=== PATIENT | female | born 1940 | race Caucasian/White ===

== ENCOUNTER 2017-11-27 15:59 | Inpatient (IN) ==
[2017-11-27] MEDS ORDERED: ONDANSETRON 4 MG/2 ML VIAL IV STA (16:22)
[2017-11-27] MEDS ORDERED: ASPIRIN 325 MG TABLET PO STA (16:22)
[2017-11-27] MEDS ORDERED: ORPHENADRINE 60 MG/2 ML VIAL IV STA (16:22)
[2017-11-27] MEDS ORDERED: KETOROLAC 30 MG/1 ML VIAL IV STA (16:22)
[2017-11-27 16:36] LABS: Basophils % 0.5 % (0.0-0.8); Eosinophils # 0.2 10*3/uL (0.0-0.87); Eosinophils % 2.3 % (0.00-10.9); Hematocrit 37.4 VOL% (35.7-47.0); Hemoglobin 11.8 GM/DL (12.0-16.0); Immature Granulocytes % 0.7 %; Immature Granulocytes Absolute 0.06 #; Lymphocytes # 1.5 10*3/uL (1.4-4.0); Lymphocytes % 17.4 % (21.3-54.2); Mean Corpuscular HGB Conc 31.6 GM/DL (32-36); Mean Corpuscular Hemoglobin 29 PG (27-34); Mean Corpuscular Volume 92.1 FL (87-102); Mean Platelet Volume 10.1 FL (9.6-12.0); Monocytes # 0.4 10*3/uL (0.11-0.8); Monocytes % 4.8 % (1.7-12.7); Neutrophils # 6.5 10*3/uL (1.4-7.4); Neutrophils % 74.3 % (38.7-73.9); Platelet Count 195 T/CUMM (130-400); Red Blood Count 4.06 MC/CUMM (3.8-5.5); White Blood Count 8.7 T/CUMM (4-12)
[2017-11-27 16:52] LABS: INR 1.7; PT Patient Result 18.1 SECS; Partial Thromboplastin Time 34.3 SECS (0-40)
[2017-11-27 17:01] LABS: Alanine Aminotransferase 23 U/L (13-56); Albumin 3.3 G/DL (3.4-5.0); Alkaline Phosphatase 112 U/L (45-117); Aspartate Amino Transferase 20 U/L (0-37); Bilirubin,Total < 0.39 MG/DL (0.2-1.0); Blood Urea Nitrogen 26 MG/DL (7-18); Calcium 8.4 MG/DL (8.5-10.1); Glucose 262 MG/DL (74-106); Osmolality,Calculated 288.7 MOS/KG (273-304); Potassium 4.2 MMOL/L (3.5-5.1); Sodium 138 MMOL/L (136-145); Total Protein 7.4 G/DL (6.4-8.3)
[2017-11-27 17:03] LABS: Troponin I 0.235 NG/ML (0.00-0.045)
[2017-11-27] MEDS ORDERED: NITROGLYCERIN 2% OINT 1 INCH/GM PACK TOP STA (17:08)
[2017-11-27] MEDS ORDERED: ZALEPLON 5 MG CAPSULE PO PRN (17:58)
[2017-11-27] MEDS ORDERED: ACETAMINOPHEN 325 MG TABLET PO PRN (17:58)
[2017-11-27] MEDS ORDERED: ONDANSETRON 4 MG/2 ML VIAL IV PRN (17:58)
[2017-11-27] MEDS ORDERED: MAGNESIUM SULF RIDER 2 GM in PREMIX 1 EACH IV PRN (17:58)
[2017-11-27] MEDS ORDERED: MAGNESIUM SULF RIDER 4 GM in PREMIX 1 EACH IV PRN (17:58)
[2017-11-27] MEDS ORDERED: POTASSIUM CHLORIDE 20 MEQ TABLET PO PRN (17:58)
[2017-11-27] MEDS ORDERED: BISACODYL 5 MG TABLET PO PRN (17:58)
[2017-11-27] MEDS ORDERED: diphenhydrAMINE CAP 25 MG CAPSULE PO PRN (17:58)
[2017-11-27] MEDS ORDERED: ENOXAPARIN 80 MG/0.8 ML SYRINGE SUBCUT STA (18:05)
[2017-11-27] MEDS: SODIUM CHLORIDE 0.9% 1,000 ML IV SCH (19:24)
[2017-11-27] MEDS: ISOSORBIDE MONONITRATE 30 MG TABLET PO SCH (19:24)
[2017-11-27 20:46] LABS: CKMB % 2.1 %; Thyroid Stimulating Hormone 1.75 uIU/ml (0.358-3.74)
[2017-11-27 20:50] LABS: Troponin I 2.17 NG/ML (0.00-0.045)
[2017-11-27] MEDS: GABAPENTIN 300 MG CAPSULE PO SCH (21:00)
[2017-11-27] MEDS: GLIMEPIRIDE 4 MG TABLET PO SCH (21:00)
[2017-11-27] MEDS: VENLAFAXINE 100 MG TABLET PO SCH (21:00)
[2017-11-28 00:02] LABS: Apearance,Urine CLEAR (Clear); Bilirubin,Urine Negative (Negative); Blood, Urine Negative (Negative); Glucose,Urine (UA) >=500 mg/dL (Negative); Ketones,Urine Negative (Negative); Mucus,Urine Occasional /LPF (Occasional); Nitrite,Urine Negative (Negative); Protein,Urine 100 MG/DL; RBC,Urine <1 /HPF (0-4); Squamous Epithelial Cell,Urine Occasional /HPF (0-10); Urine Color Yellow (Yellow); Urine Specific Gravity 1.014 (1.001-1.035); Urine Urobilinogen < 2.0 EU/DL (0.2-1.0); WBC,Urine 1 /HPF (0-6)
[2017-11-28 01:55] LABS: Basophils % 0.7 % (0.0-0.8); Eosinophils # 0.3 10*3/uL (0.0-0.87); Eosinophils % 4.9 % (0.00-10.9); Hematocrit 32.4 VOL% (35.7-47.0); Immature Granulocytes % 0.2 %; Immature Granulocytes Absolute 0.01 #; Lymphocytes % 32.2 % (21.3-54.2); Mean Corpuscular HGB Conc 30.9 GM/DL (32-36); Mean Corpuscular Hemoglobin 29 PG (27-34); Mean Corpuscular Volume 92.3 FL (87-102); Monocytes # 0.5 10*3/uL (0.11-0.8); Neutrophils # 3.3 10*3/uL (1.4-7.4); Platelet Count 172 T/CUMM (130-400); Red Blood Count 3.51 MC/CUMM (3.8-5.5); Red Cell Distribution Width 13.1 % (9.3-17.3); White Blood Count 6.1 T/CUMM (4-12)
[2017-11-28 02:07] LABS: INR 1.7; PT Patient Result 17.8 SECS
[2017-11-28 02:18] LABS: CKMB % 2.6 %; Calcium 7.8 MG/DL (8.5-10.1); Osmolality,Calculated 288.3 MOS/KG (273-304); Potassium 3.6 MMOL/L (3.5-5.1); Risk Ratio 6.03; VLDL CHOLESTEROL 100.6 MG/DL
[2017-11-28 02:28] LABS: Troponin I 3.81 NG/ML (0.00-0.045)
[2017-11-28] MEDS: INSULIN NPH/REGULAR 70/30 100 UNIT/ML SUBCUT SCH (07:38)
[2017-11-28] MEDS ORDERED: MAGNESIUM SULF RIDER 2 GM in PREMIX 1 EACH IV PRN (07:58)
[2017-11-28] MEDS ORDERED: POTASSIUM CHLORIDE RIDER 10 MEQ in PREMIX 1 EACH IV PRN (07:58)
[2017-11-28] MEDS: LOSARTAN 50 MG TABLET PO SCH (08:27)
[2017-11-28] MEDS: ASPIRIN EC 81 MG TABLET PO SCH (08:28)
[2017-11-28] MEDS: GLIMEPIRIDE 4 MG TABLET PO SCH ×2 (08:28→20:17)
[2017-11-28] MEDS: PANTOPRAZOLE 40 MG TABLET PO SCH (08:28)
[2017-11-28] MEDS: GABAPENTIN 300 MG CAPSULE PO SCH ×2 (08:28→20:17)
[2017-11-28] MEDS: ISOSORBIDE MONONITRATE 30 MG TABLET PO SCH (08:28)
[2017-11-28] MEDS: VENLAFAXINE 100 MG TABLET PO SCH ×2 (08:30→20:18)
[2017-11-28] MEDS ORDERED: ENOXAPARIN 80 MG/0.8 ML SYRINGE SUBCUT ONE (08:33)
[2017-11-28] MEDS ORDERED: ROSUVASTATIN 20 MG TABLET PO SCH (09:00)
[2017-11-28] MEDS ORDERED: CARVEDILOL 6.25 MG TABLET PO SCH (09:00)
[2017-11-28] MEDS: FUROSEMIDE 20 MG TABLET PO SCH (09:19)
[2017-11-28] MEDS: OMEGA 3 ACID ETHYL ESTERS 1 GM CAPSULE PO SCH ×2 (09:19→20:17)
[2017-11-28] MEDS: EZETIMIBE 10 MG TABLET PO SCH (09:19)
[2017-11-28] MEDS: SODIUM CHLORIDE 0.9% 1,000 ML IV SCH (10:44)
[2017-11-28] MEDS ORDERED: diphenhydrAMINE CAP 25 MG CAPSULE PO ONE (12:00)
[2017-11-28] MEDS ORDERED: DIAZEPAM 5 MG TABLET PO ONE (12:00)
[2017-11-28] MEDS ORDERED: HEPARIN/NACL 0.9% 2 UNITS/ML 1,000 ML IV ONE (12:25)
[2017-11-28] MEDS ORDERED: MIDAZOLAM 2 MG/2 ML VIAL ONE (13:13)
[2017-11-28] MEDS ORDERED: fentaNYL 100 MCG/2 ML VIAL ONE (13:13)
[2017-11-28] MEDS ORDERED: LIDOCAINE 1%/EPI INJ 20 ML VIAL ONE (13:13)
[2017-11-28] MEDS ORDERED: ENOXAPARIN 30 MG/0.3 ML SYRINGE ONE (13:34)
[2017-11-28] MEDS ORDERED: TIROFIBAN 5,000 MCG/100 ML PREMIX IV ONE (13:37)
[2017-11-28] MEDS ORDERED: TICAGRELOR 90 MG TABLET ONE (13:51)
[2017-11-28] MEDS ORDERED: TIROFIBAN 5,000 MCG/100 ML PREMIX IV SCH (14:30)
[2017-11-28] MEDS ORDERED: CARVEDILOL 6.25 MG TABLET PO ONE (16:55)
[2017-11-28] MEDS ORDERED: INSULIN NPH/REGULAR 70/30 100 UNIT/ML SUBCUT SCH (18:00)
[2017-11-28] MEDS: TICAGRELOR 90 MG TABLET PO SCH (20:17)
[2017-11-28] MEDS: CARVEDILOL 25 MG TABLET PO SCH (20:17)
[2017-11-28] MEDS ORDERED: DIGOXIN 0.125 MG TABLET PO SCH (21:00)
[2017-11-29 03:40] LABS: Basophils % 0.5 % (0.0-0.8); Eosinophils # 0.2 10*3/uL (0.0-0.87); Eosinophils % 3.5 % (0.00-10.9); Hematocrit 34.7 VOL% (35.7-47.0); Hemoglobin 10.8 GM/DL (12.0-16.0); Immature Granulocytes % 0.3 %; Immature Granulocytes Absolute 0.02 #; Lymphocytes # 1.2 10*3/uL (1.4-4.0); Lymphocytes % 19.4 % (21.3-54.2); Mean Corpuscular HGB Conc 31.1 GM/DL (32-36); Mean Corpuscular Hemoglobin 29 PG (27-34); Mean Platelet Volume 10.2 FL (9.6-12.0); Monocytes # 0.6 10*3/uL (0.11-0.8); Monocytes % 9.5 % (1.7-12.7); Neutrophils # 4.2 10*3/uL (1.4-7.4); Neutrophils % 66.8 % (38.7-73.9); Platelet Count 194 T/CUMM (130-400); Red Blood Count 3.77 MC/CUMM (3.8-5.5); White Blood Count 6.3 T/CUMM (4-12)
[2017-11-29 03:46] LABS: INR 1.4; PT Patient Result 14.8 SECS
[2017-11-29 04:01] LABS: Calcium 7.7 MG/DL (8.5-10.1); Osmolality,Calculated 287.4 MOS/KG (273-304); Potassium 3.5 MMOL/L (3.5-5.1)
[2017-11-29] MEDS: DILTIAZEM CD 180 MG CAPSULE PO SCH ×2 (06:51→08:26)
[2017-11-29 07:12] VITALS: BP 177/122
[2017-11-29] MEDS ORDERED: DILTIAZEM CD 180 MG CAPSULE PO SCH (09:00)
[2017-11-29] MEDS: CARVEDILOL 25 MG TABLET PO SCH (09:34)
[2017-11-29] MEDS: FUROSEMIDE 20 MG TABLET PO SCH (09:34)
[2017-11-29] MEDS: LOSARTAN 50 MG TABLET PO SCH (09:34)
[2017-11-29] MEDS: INSULIN NPH/REGULAR 70/30 100 UNIT/ML SUBCUT SCH (09:34)
[2017-11-29] MEDS: ISOSORBIDE MONONITRATE 30 MG TABLET PO SCH (09:34)
[2017-11-29] MEDS: GABAPENTIN 300 MG CAPSULE PO SCH (09:34)
[2017-11-29] MEDS: ASPIRIN EC 81 MG TABLET PO SCH (09:35)
[2017-11-29] MEDS: GLIMEPIRIDE 4 MG TABLET PO SCH (09:35)
[2017-11-29] MEDS: PANTOPRAZOLE 40 MG TABLET PO SCH (09:35)
[2017-11-29] MEDS: TICAGRELOR 90 MG TABLET PO SCH (09:35)
[2017-11-29] MEDS: VENLAFAXINE 100 MG TABLET PO SCH (09:35)
[2017-11-29] MEDS: EZETIMIBE 10 MG TABLET PO SCH (09:35)
[2017-11-29] MEDS: OMEGA 3 ACID ETHYL ESTERS 1 GM CAPSULE PO SCH (09:40)
== END 2017-11-29 14:40 | disposition home or self-care (01) | DRG 247 ==
LOC: N.ED 15:59 → N.EDINP 15:59 → N.CC 19:15 → N.TELES 21:30 → N.CC 21:38
PROVIDERS: ADMIT Internal Medicine Interventional Cardiology; ATTEND Internal Medicine Interventional Cardiology
PROC: CLCCHCL (ICD-10-PCS; 2017-11-28 13:45)

== ENCOUNTER 2018-10-30 10:23 | Inpatient (IN) ==
[2018-10-30] MEDS ORDERED: DILTIAZEM 50 MG/10 ML VIAL IV STA ×2 (10:45→11:15)
[2018-10-30] MEDS ORDERED: dilTIAZem Drip 125 MG/125 ML PREMIX IV ONE (10:47)
[2018-10-30] MEDS ORDERED: DILTIAZEM 25 MG/5 ML VIAL IV ONE (10:48)
[2018-10-30] MEDS ORDERED: dilTIAZem Drip 125 MG/125 ML PREMIX IV SCH (11:00)
[2018-10-30 11:06] LABS: Basophils % 0.5 % (0.0-0.8); Eosinophils # 0.1 10*3/uL (0.0-0.87); Eosinophils % 1.7 % (0.00-10.9); Hematocrit 37.1 VOL% (35.7-47.0); Hemoglobin 11.6 GM/DL (12.0-16.0); Immature Granulocytes % 0.3 %; Immature Granulocytes Absolute 0.02 #; Lymphocytes # 0.9 10*3/uL (1.4-4.0); Lymphocytes % 12.3 % (21.3-54.2); Mean Corpuscular HGB Conc 31.3 GM/DL (32-36); Mean Corpuscular Volume 92.5 FL (87-102); Monocytes % 5.2 % (1.7-12.7); Platelet Count 223 T/CUMM (130-400); Red Blood Count 4.01 MC/CUMM (3.8-5.5); Red Cell Distribution Width 13.4 % (9.3-17.3); White Blood Count 7.5 T/CUMM (4-12)
[2018-10-30 11:14] LABS: Partial Thromboplastin Time 34.5 SECS (20.8-36.0)
[2018-10-30 11:19] LABS: INR 2.1
[2018-10-30 11:20] LABS: PT Patient Result 22.3 SECS (9.6-12.2)
[2018-10-30 11:33] LABS: Alanine Aminotransferase 21 U/L (13-56); Albumin 3.4 G/DL (3.4-5.0); Alkaline Phosphatase 100 U/L (45-117); Aspartate Amino Transferase 18 U/L (0-37); Bilirubin,Total < 0.39 MG/DL (0.2-1.0); Blood Urea Nitrogen 30 MG/DL (7-18); Calcium 8.7 MG/DL (8.5-10.1); Estimated Glom Filtration Rate 36 ML/MIN; Glucose 249 MG/DL (74-106); Osmolality,Calculated 290.5 MOS/KG (273-304); Total Protein 7.2 G/DL (6.4-8.3)
[2018-10-30] MEDS ORDERED: FUROSEMIDE 40 MG/4 ML VIAL IV STA ×2 (11:43→11:44)
[2018-10-30] MEDS ORDERED: ACETAMINOPHEN 325 MG TABLET PO PRN (12:51)
[2018-10-30] MEDS ORDERED: DEXTROSE 50% 25 GM/50 ML VIAL IV PRN (12:51)
[2018-10-30] MEDS ORDERED: GLUCAGON 1 MG VIAL IM PRN (12:51)
[2018-10-30] MEDS ORDERED: ONDANSETRON 4 MG/2 ML VIAL IV PRN (12:51)
[2018-10-30] MEDS ORDERED: INFLUENZA VIRUS VACCINE 0.5 ML SYRINGE IM ONE (13:35)
[2018-10-30] MEDS ORDERED: POTASSIUM CHLORIDE 20 MEQ TABLET PO ONE (14:10)
[2018-10-30] MEDS ORDERED: MAGNESIUM SULF RIDER 2 GM in PREMIX 1 EACH IV ONE (14:11)
[2018-10-30] MEDS ORDERED: MECLIZINE 12.5 MG TABLET PO PRN (14:23)
[2018-10-30] MEDS: DILTIAZEM 30 MG TABLET PO SCH ×2 (16:59→20:17)
[2018-10-30] MEDS: GLIMEPIRIDE 2 MG TABLET PO SCH (16:59)
[2018-10-30] MEDS: FUROSEMIDE 40 MG/4 ML VIAL IV SCH (17:00)
[2018-10-30] MEDS: INSULIN REGULAR 100 UNIT/ML SUBCUT SCH (17:21)
[2018-10-30] MEDS ORDERED: WARFARIN 5 MG TABLET PO SCH (18:00)
[2018-10-30 18:34] LABS: Apearance,Urine CLEAR (Clear); Bilirubin,Urine Negative (Negative); Blood, Urine Negative (Negative); Glucose,Urine (UA) Negative (Negative); Hyaline Casts,Urine 9 /LPF (0-3); Ketones,Urine Negative (Negative); Mucus,Urine Occasional /LPF (Occasional); Nitrite,Urine Negative (Negative); Protein,Urine 30 MG/DL; RBC,Urine 2 /HPF (0-4); Squamous Epithelial Cell,Urine Occasional /HPF (0-10); Urine Color Yellow (Yellow); Urine Specific Gravity 1.011 (1.001-1.035); Urine Urobilinogen < 2.0 EU/DL (0.2-1.0); WBC,Urine 1 /HPF (0-6)
[2018-10-30 19:00] LABS: Barbiturates Screen,Urine Negative (Negative); Benzodiazepines Screen,Urine Negative (Negative); Cannabinoid Screen,Urine Negative (Negative); Opiate Screen,Urine Negative (Negative); Phencyclidine Screen,Urine Negative (Negative)
[2018-10-30] MEDS: GABAPENTIN 100 MG CAPSULE PO SCH (20:17)
[2018-10-31 05:43] LABS: Basophils % 0.5 % (0.0-0.8); Eosinophils # 0.2 10*3/uL (0.0-0.87); Eosinophils % 2.7 % (0.00-10.9); Hematocrit 36.4 VOL% (35.7-47.0); Hemoglobin 11.3 GM/DL (12.0-16.0); Immature Granulocytes % 0.3 %; Immature Granulocytes Absolute 0.02 #; Lymphocytes % 15.6 % (21.3-54.2); Mean Corpuscular Volume 91.7 FL (87-102); Mean Platelet Volume 10.3 FL (9.6-12.0); Monocytes % 8.3 % (1.7-12.7); Neutrophils % 72.6 % (38.7-73.9); Platelet Count 205 T/CUMM (130-400); Red Blood Count 3.97 MC/CUMM (3.8-5.5); Red Cell Distribution Width 13.2 % (9.3-17.3); White Blood Count 6.3 T/CUMM (4-12)
[2018-10-31 05:54] LABS: Calcium 8.5 MG/DL (8.5-10.1); Osmolality,Calculated 283.4 MOS/KG (273-304)
[2018-10-31] MEDS: INSULIN REGULAR 100 UNIT/ML SUBCUT SCH ×3 (08:34→17:00)
[2018-10-31] MEDS: LOSARTAN 50 MG TABLET PO SCH (08:38)
[2018-10-31] MEDS: DILTIAZEM 30 MG TABLET PO SCH ×2 (08:38→12:04)
[2018-10-31] MEDS: CLOPIDOGREL 75 MG TABLET PO SCH (08:39)
[2018-10-31] MEDS: VENLAFAXINE XR 75 MG CAPSULE PO SCH (08:39)
[2018-10-31] MEDS: FUROSEMIDE 40 MG/4 ML VIAL IV SCH ×2 (08:39→16:57)
[2018-10-31] MEDS: GLIMEPIRIDE 2 MG TABLET PO SCH ×2 (08:39→16:57)
[2018-10-31] MEDS ORDERED: MAGNESIUM SULF RIDER 2 GM in PREMIX 1 EACH IV PRN (12:52)
[2018-10-31] MEDS ORDERED: POTASSIUM CHLORIDE RIDER 10 MEQ in PREMIX 1 EACH IV PRN (12:52)
[2018-10-31] MEDS: DILTIAZEM 60 MG TABLET PO SCH ×3 (12:56→20:22)
[2018-10-31] MEDS: POTASSIUM CHLORIDE 20 MEQ TABLET PO PRN ×2 (12:57→14:54)
[2018-10-31 13:12] LABS: PT Patient Result 21.1 SECS (9.6-12.2)
[2018-10-31] MEDS: POTASSIUM CHLORIDE 20 MEQ TABLET PO SCH (20:22)
[2018-10-31] MEDS: GABAPENTIN 100 MG CAPSULE PO SCH (20:23)
[2018-11-01 05:23] LABS: Basophils # 0.1 10*3/uL (0.0-0.2); Basophils % 0.8 % (0.0-0.8); Eosinophils # 0.2 10*3/uL (0.0-0.87); Eosinophils % 3.1 % (0.00-10.9); Hematocrit 35.8 VOL% (35.7-47.0); Hemoglobin 11.2 GM/DL (12.0-16.0); Immature Granulocytes % 0.3 %; Immature Granulocytes Absolute 0.02 #; Lymphocytes # 1.1 10*3/uL (1.4-4.0); Lymphocytes % 16.5 % (21.3-54.2); Mean Corpuscular HGB Conc 31.3 GM/DL (32-36); Monocytes % 8.8 % (1.7-12.7); Neutrophils % 70.5 % (38.7-73.9); Platelet Count 225 T/CUMM (130-400); Red Blood Count 3.89 MC/CUMM (3.8-5.5); Red Cell Distribution Width 13.2 % (9.3-17.3); White Blood Count 6.5 T/CUMM (4-12)
[2018-11-01 05:31] LABS: INR 1.7; PT Patient Result 18.7 SECS (9.6-12.2)
[2018-11-01 05:40] LABS: Calcium 8.5 MG/DL (8.5-10.1); Osmolality,Calculated 284.3 MOS/KG (273-304)
[2018-11-01] MEDS: DILTIAZEM 60 MG TABLET PO SCH (08:19)
[2018-11-01] MEDS: LOSARTAN 50 MG TABLET PO SCH (08:19)
[2018-11-01] MEDS: INSULIN REGULAR 100 UNIT/ML SUBCUT SCH ×2 (08:20→16:48)
[2018-11-01] MEDS: EZETIMIBE 10 MG TABLET PO SCH (09:20)
[2018-11-01] MEDS: GLIMEPIRIDE 2 MG TABLET PO SCH ×2 (09:20→16:45)
[2018-11-01] MEDS: VENLAFAXINE XR 75 MG CAPSULE PO SCH (09:20)
[2018-11-01] MEDS: POTASSIUM CHLORIDE 20 MEQ TABLET PO SCH ×2 (09:20→20:45)
[2018-11-01] MEDS: ASPIRIN EC 81 MG TABLET PO SCH ×2 (09:21→09:24)
[2018-11-01] MEDS: FUROSEMIDE 40 MG/4 ML VIAL IV SCH ×2 (09:21→16:45)
[2018-11-01] MEDS: CLOPIDOGREL 75 MG TABLET PO SCH (09:21)
[2018-11-01] MEDS: METOPROLOL TARTRATE 25 MG TABLET PO SCH ×2 (09:32→20:46)
[2018-11-01] MEDS: dilTIAZem Drip 125 MG/125 ML PREMIX IV SCH (09:33)
[2018-11-01] MEDS: GABAPENTIN 100 MG CAPSULE PO SCH (20:45)
[2018-11-02 05:11] LABS: Basophils # 0.1 10*3/uL (0.0-0.2); Basophils % 0.8 % (0.0-0.8); Eosinophils # 0.2 10*3/uL (0.0-0.87); Eosinophils % 2.3 % (0.00-10.9); Hematocrit 37.2 VOL% (35.7-47.0); Hemoglobin 11.5 GM/DL (12.0-16.0); Immature Granulocytes % 0.3 %; Immature Granulocytes Absolute 0.02 #; Lymphocytes # 1.2 10*3/uL (1.4-4.0); Lymphocytes % 18.7 % (21.3-54.2); Mean Corpuscular HGB Conc 30.9 GM/DL (32-36); Mean Corpuscular Volume 92.5 FL (87-102); Mean Platelet Volume 10.4 FL (9.6-12.0); Monocytes % 8.6 % (1.7-12.7); Neutrophils % 69.3 % (38.7-73.9); Platelet Count 230 T/CUMM (130-400); Red Blood Count 4.02 MC/CUMM (3.8-5.5); Red Cell Distribution Width 13.2 % (9.3-17.3); White Blood Count 6.6 T/CUMM (4-12)
[2018-11-02 05:16] LABS: INR 1.3; PT Patient Result 14.5 SECS (9.6-12.2)
[2018-11-02 05:30] LABS: Calcium 8.8 MG/DL (8.5-10.1); Osmolality,Calculated 287.3 MOS/KG (273-304)
[2018-11-02] MEDS: INSULIN REGULAR 100 UNIT/ML SUBCUT SCH ×2 (08:59→16:48)
[2018-11-02] MEDS ORDERED: ENOXAPARIN 80 MG/0.8 ML SYRINGE SUBCUT ONE (09:00)
[2018-11-02] MEDS: GLIMEPIRIDE 2 MG TABLET PO SCH ×2 (09:01→16:53)
[2018-11-02] MEDS: LOSARTAN 50 MG TABLET PO SCH (09:02)
[2018-11-02] MEDS: VENLAFAXINE XR 75 MG CAPSULE PO SCH (09:02)
[2018-11-02] MEDS: METOPROLOL TARTRATE 25 MG TABLET PO SCH ×2 (09:02→20:17)
[2018-11-02] MEDS: EZETIMIBE 10 MG TABLET PO SCH (09:02)
[2018-11-02] MEDS: POTASSIUM CHLORIDE 20 MEQ TABLET PO SCH (09:03)
[2018-11-02] MEDS: ASPIRIN EC 81 MG TABLET PO SCH (09:03)
[2018-11-02] MEDS: FUROSEMIDE 40 MG/4 ML VIAL IV SCH ×2 (09:04→16:52)
[2018-11-02] MEDS: CLOPIDOGREL 75 MG TABLET PO SCH (09:08)
[2018-11-02] MEDS: dilTIAZem Drip 125 MG/125 ML PREMIX IV SCH (09:49)
[2018-11-02] MEDS: GABAPENTIN 100 MG CAPSULE PO SCH (20:17)
[2018-11-03 05:40] LABS: Basophils % 0.6 % (0.0-0.8); Eosinophils # 0.2 10*3/uL (0.0-0.87); Eosinophils % 2.9 % (0.00-10.9); Hematocrit 34.3 VOL% (35.7-47.0); Hemoglobin 10.6 GM/DL (12.0-16.0); Immature Granulocytes % 0.2 %; Immature Granulocytes Absolute 0.01 #; Lymphocytes # 1.3 10*3/uL (1.4-4.0); Lymphocytes % 20.3 % (21.3-54.2); Mean Corpuscular HGB Conc 30.9 GM/DL (32-36); Mean Corpuscular Volume 93.2 FL (87-102); Mean Platelet Volume 10.5 FL (9.6-12.0); Platelet Count 223 T/CUMM (130-400); Red Blood Count 3.68 MC/CUMM (3.8-5.5); Red Cell Distribution Width 13.1 % (9.3-17.3); White Blood Count 6.2 T/CUMM (4-12)
[2018-11-03 05:50] LABS: INR 1.1; PT Patient Result 12.2 SECS (9.6-12.2)
[2018-11-03 05:57] LABS: Calcium 8.6 MG/DL (8.5-10.1); Osmolality,Calculated 286.4 MOS/KG (273-304)
[2018-11-03] MEDS ORDERED: HEPARIN/NACL 0.9% 2 UNITS/ML 1,000 ML IV ONE (06:54)
[2018-11-03] MEDS ORDERED: DIAZEPAM 5 MG TABLET PO ONE (07:00)
[2018-11-03] MEDS ORDERED: diphenhydrAMINE CAP 25 MG CAPSULE PO ONE (07:00)
[2018-11-03] MEDS ORDERED: LIDOCAINE 1%/EPI INJ 20 ML VIAL ONE (07:15)
[2018-11-03] MEDS ORDERED: fentaNYL 100 MCG/2 ML VIAL ONE (08:20)
[2018-11-03] MEDS ORDERED: MIDAZOLAM 2 MG/2 ML VIAL ONE (08:20)
[2018-11-03] MEDS ORDERED: SODIUM CHLORIDE 0.9% 1,000 ML IV SCH (10:00)
[2018-11-03] MEDS: INSULIN REGULAR 100 UNIT/ML SUBCUT SCH ×2 (10:03→17:21)
[2018-11-03] MEDS: GLIMEPIRIDE 2 MG TABLET PO SCH ×2 (10:03→17:17)
[2018-11-03] MEDS: FUROSEMIDE 40 MG/4 ML VIAL IV SCH ×2 (13:23→17:17)
[2018-11-03] MEDS: EZETIMIBE 10 MG TABLET PO SCH (14:06)
[2018-11-03] MEDS: METOPROLOL TARTRATE 50 MG TABLET PO SCH ×2 (14:07→20:39)
[2018-11-03] MEDS: ISOSORBIDE MONONITRATE 30 MG TABLET PO SCH (14:07)
[2018-11-03] MEDS: ASPIRIN EC 81 MG TABLET PO SCH (14:07)
[2018-11-03] MEDS: VENLAFAXINE XR 75 MG CAPSULE PO SCH (14:07)
[2018-11-03] MEDS: POTASSIUM CHLORIDE 20 MEQ TABLET PO SCH (14:07)
[2018-11-03] MEDS: WARFARIN 5 MG TABLET PO SCH (17:17)
[2018-11-03] MEDS: GABAPENTIN 100 MG CAPSULE PO SCH (20:39)
[2018-11-04 06:00] LABS: Basophils # 0.1 10*3/uL (0.0-0.2); Basophils % 0.8 % (0.0-0.8); Eosinophils # 0.2 10*3/uL (0.0-0.87); Eosinophils % 2.4 % (0.00-10.9); Hematocrit 36.7 VOL% (35.7-47.0); Hemoglobin 11.2 GM/DL (12.0-16.0); Immature Granulocytes % 0.3 %; Immature Granulocytes Absolute 0.02 #; Lymphocytes # 1.3 10*3/uL (1.4-4.0); Lymphocytes % 17.2 % (21.3-54.2); Mean Corpuscular HGB Conc 30.5 GM/DL (32-36); Mean Corpuscular Volume 94.8 FL (87-102); Mean Platelet Volume 10.3 FL (9.6-12.0); Monocytes % 8.4 % (1.7-12.7); Neutrophils % 70.9 % (38.7-73.9); Platelet Count 225 T/CUMM (130-400); Red Blood Count 3.87 MC/CUMM (3.8-5.5); Red Cell Distribution Width 13.3 % (9.3-17.3); White Blood Count 7.6 T/CUMM (4-12)
[2018-11-04 06:16] LABS: Osmolality,Calculated 285.5 MOS/KG (273-304)
[2018-11-04 06:20] LABS: INR 1.1; PT Patient Result 11.5 SECS (9.6-12.2)
[2018-11-04] MEDS: POTASSIUM CHLORIDE 20 MEQ TABLET PO SCH (08:14)
[2018-11-04] MEDS: GLIMEPIRIDE 2 MG TABLET PO SCH (08:15)
[2018-11-04] MEDS: ASPIRIN EC 81 MG TABLET PO SCH (08:15)
[2018-11-04] MEDS: INSULIN REGULAR 100 UNIT/ML SUBCUT SCH ×2 (08:15→16:41)
[2018-11-04] MEDS: ISOSORBIDE MONONITRATE 30 MG TABLET PO SCH (08:15)
[2018-11-04] MEDS: VENLAFAXINE XR 75 MG CAPSULE PO SCH (08:15)
[2018-11-04] MEDS: METOPROLOL TARTRATE 50 MG TABLET PO SCH ×2 (08:15→20:58)
[2018-11-04] MEDS: EZETIMIBE 10 MG TABLET PO SCH (08:15)
[2018-11-04] MEDS ORDERED: DILTIAZEM CD 120 MG CAPSULE PO SCH (09:00)
[2018-11-04] MEDS: DIGOXIN 0.125 MG TABLET PO SCH (12:43)
[2018-11-04] MEDS: FUROSEMIDE 40 MG/4 ML VIAL IV SCH (15:27)
[2018-11-04] MEDS: WARFARIN 5 MG TABLET PO SCH (17:33)
[2018-11-04] MEDS: GABAPENTIN 100 MG CAPSULE PO SCH (20:58)
[2018-11-05 05:15] LABS: Calcium 8.9 MG/DL (8.5-10.1); INR 1.1; Osmolality,Calculated 290.3 MOS/KG (273-304); PT Patient Result 11.4 SECS (9.6-12.2)
[2018-11-05] MEDS ORDERED: NITROGLYCERIN 2% OINT 1 INCH/GM PACK TOP ONE (08:00)
[2018-11-05] MEDS: FUROSEMIDE 40 MG/4 ML VIAL IV SCH ×2 (08:11→16:27)
[2018-11-05] MEDS: VENLAFAXINE XR 75 MG CAPSULE PO SCH (08:13)
[2018-11-05] MEDS: METOPROLOL TARTRATE 50 MG TABLET PO SCH (08:13)
[2018-11-05] MEDS: ASPIRIN EC 81 MG TABLET PO SCH (08:13)
[2018-11-05] MEDS: EZETIMIBE 10 MG TABLET PO SCH (08:13)
[2018-11-05] MEDS: NITROGLYCERIN 2% OINT 1 INCH/GM PACK TOP SCH ×4 (08:14→23:39)
[2018-11-05] MEDS: INSULIN REGULAR 100 UNIT/ML SUBCUT SCH ×3 (08:14→16:17)
[2018-11-05] MEDS: SPIRONOLACTONE 25 MG TABLET PO SCH (08:21)
[2018-11-05] MEDS: CLORAZEPATE 3.75 MG TABLET PO PRN ×2 (08:25→21:05)
[2018-11-05] MEDS ORDERED: FUROSEMIDE 20 MG/2 ML VIAL IM ONE (08:30)
[2018-11-05] MEDS ORDERED: FUROSEMIDE 20 MG/2 ML VIAL IV ONE (08:30)
[2018-11-05] MEDS: FUROSEMIDE 40 MG/4 ML VIAL IM SCH ×2 (08:44→16:52)
[2018-11-05] MEDS ORDERED: WARFARIN 3 MG TABLET PO ONE (09:33)
[2018-11-05] MEDS: METOPROLOL TARTRATE 100 MG TABLET PO SCH ×2 (10:28→21:07)
[2018-11-05] MEDS ORDERED: NITROGLYCERIN 2% OINT 1 INCH/GM PACK TOP SCH (12:00)
[2018-11-05] MEDS: DIGOXIN 0.125 MG TABLET PO SCH (12:42)
[2018-11-05] MEDS: WARFARIN 5 MG TABLET PO SCH (17:25)
[2018-11-05] MEDS: GABAPENTIN 100 MG CAPSULE PO SCH (21:05)
[2018-11-06 04:00] LABS: Basophils # 0.1 10*3/uL (0.0-0.2); Basophils % 0.8 % (0.0-0.8); Eosinophils # 0.2 10*3/uL (0.0-0.87); Eosinophils % 3.4 % (0.00-10.9); Hematocrit 36.4 VOL% (35.7-47.0); Hemoglobin 11.5 GM/DL (12.0-16.0); Immature Granulocytes % 0.3 %; Immature Granulocytes Absolute 0.02 #; Lymphocytes # 1.3 10*3/uL (1.4-4.0); Lymphocytes % 20.5 % (21.3-54.2); Mean Corpuscular HGB Conc 31.6 GM/DL (32-36); Mean Corpuscular Volume 91.7 FL (87-102); Mean Platelet Volume 10.6 FL (9.6-12.0); Platelet Count 223 T/CUMM (130-400); Red Blood Count 3.97 MC/CUMM (3.8-5.5); Red Cell Distribution Width 13.2 % (9.3-17.3); White Blood Count 6.4 T/CUMM (4-12)
[2018-11-06 04:04] LABS: INR 1.3; PT Patient Result 13.7 SECS (9.6-12.2)
[2018-11-06 04:04] LABS: Calcium 8.7 MG/DL (8.5-10.1); Osmolality,Calculated 287.4 MOS/KG (273-304)
[2018-11-06] MEDS: NITROGLYCERIN 2% OINT 1 INCH/GM PACK TOP SCH (06:15)
[2018-11-06] MEDS: INSULIN REGULAR 100 UNIT/ML SUBCUT SCH ×2 (09:41→16:33)
[2018-11-06] MEDS: ASPIRIN EC 81 MG TABLET PO SCH (09:41)
[2018-11-06] MEDS: CLORAZEPATE 3.75 MG TABLET PO PRN ×2 (09:42→21:06)
[2018-11-06] MEDS: SPIRONOLACTONE 25 MG TABLET PO SCH (09:42)
[2018-11-06] MEDS: FUROSEMIDE 40 MG/4 ML VIAL IV SCH ×2 (09:42→16:29)
[2018-11-06] MEDS: VENLAFAXINE XR 75 MG CAPSULE PO SCH (09:42)
[2018-11-06] MEDS: ISOSORBIDE MONONITRATE 60 MG TABLET PO SCH (09:42)
[2018-11-06] MEDS: METOPROLOL TARTRATE 100 MG TABLET PO SCH ×2 (09:42→21:06)
[2018-11-06] MEDS: EZETIMIBE 10 MG TABLET PO SCH (09:42)
[2018-11-06] MEDS ORDERED: WARFARIN 3 MG TABLET PO ONE (10:28)
[2018-11-06] MEDS: DIGOXIN 0.125 MG TABLET PO SCH (13:24)
[2018-11-06] MEDS: WARFARIN 5 MG TABLET PO SCH (17:18)
[2018-11-06] MEDS: GABAPENTIN 100 MG CAPSULE PO SCH (21:06)
[2018-11-07 04:18] LABS: Basophils % 0.4 % (0.0-0.8); Eosinophils # 0.2 10*3/uL (0.0-0.87); Eosinophils % 3.4 % (0.00-10.9); Hematocrit 37.3 VOL% (35.7-47.0); Hemoglobin 11.8 GM/DL (12.0-16.0); Immature Granulocytes % 0.4 %; Immature Granulocytes Absolute 0.02 #; Lymphocytes # 1.2 10*3/uL (1.4-4.0); Lymphocytes % 21.4 % (21.3-54.2); Mean Corpuscular HGB Conc 31.6 GM/DL (32-36); Mean Corpuscular Volume 89.7 FL (87-102); Mean Platelet Volume 10.8 FL (9.6-12.0); Monocytes % 8.1 % (1.7-12.7); Neutrophils % 66.3 % (38.7-73.9); Platelet Count 229 T/CUMM (130-400); Red Blood Count 4.16 MC/CUMM (3.8-5.5); Red Cell Distribution Width 13.2 % (9.3-17.3); White Blood Count 5.6 T/CUMM (4-12)
[2018-11-07 04:33] LABS: INR 1.6; PT Patient Result 16.9 SECS (9.6-12.2)
[2018-11-07 04:54] LABS: Calcium 8.7 MG/DL (8.5-10.1); Osmolality,Calculated 285.7 MOS/KG (273-304)
[2018-11-07] MEDS ORDERED: hydrALAZINE 25 MG TABLET PO SCH (09:32)
[2018-11-07] MEDS: INSULIN REGULAR 100 UNIT/ML SUBCUT SCH (09:51)
[2018-11-07] MEDS: SPIRONOLACTONE 25 MG TABLET PO SCH (09:52)
[2018-11-07] MEDS: ASPIRIN EC 81 MG TABLET PO SCH (09:52)
[2018-11-07] MEDS: ISOSORBIDE MONONITRATE 60 MG TABLET PO SCH (09:53)
[2018-11-07] MEDS: VENLAFAXINE XR 75 MG CAPSULE PO SCH (09:53)
[2018-11-07] MEDS: METOPROLOL TARTRATE 100 MG TABLET PO SCH (09:54)
[2018-11-07] MEDS: EZETIMIBE 10 MG TABLET PO SCH (09:54)
[2018-11-07] MEDS: FUROSEMIDE 40 MG/4 ML VIAL IV SCH (09:57)
[2018-11-07 11:41] VITALS: BP 140/90
[2018-11-08] MEDS ORDERED: FUROSEMIDE 80 MG TABLET PO SCH (09:00)
== END 2018-11-07 13:45 | disposition home health service (06) | DRG 286 ==
LOC: N.ED 10:23 → N.EDINP 12:21 → INTOOBSV 12:21 → N.TELEN 13:15 → SUATTDRO 11-01 11:50
PROVIDERS: ADMIT Hospitalist; ATTEND Emergency Medicine
PROC: CLCCHCL (ICD-10-PCS; 2018-11-03 08:45)

== ENCOUNTER 2019-05-13 15:11 | Inpatient (IN) ==
[2019-05-13] MEDS ORDERED: ONDANSETRON 4 MG/2 ML VIAL IV STA (16:10)
[2019-05-13] MEDS ORDERED: FUROSEMIDE 100 MG/10 ML VIAL IV STA (16:10)
[2019-05-13] MEDS ORDERED: ALBUTEROL/IPRATROPIUM 3 ML NEB RESP TX STA (16:10)
[2019-05-13 16:29] LABS: Basophils # 0.1 10*3/uL (0.0-0.2); Basophils % 0.6 % (0.0-0.8); Eosinophils # 0.1 10*3/uL (0.0-0.87); Eosinophils % 1.6 % (0.00-10.9); Hematocrit 40.2 VOL% (35.7-47.0); Hemoglobin 12.3 GM/DL (12.0-16.0); Immature Granulocytes % 0.3 %; Immature Granulocytes Absolute 0.02 #; Lymphocytes # 0.9 10*3/uL (1.4-4.0); Mean Corpuscular HGB Conc 30.6 GM/DL (32-36); Mean Corpuscular Volume 94.6 FL (87-102); Monocytes % 6.2 % (1.7-12.7); Neutrophils % 79.3 % (38.7-73.9); Platelet Count 211 T/CUMM (130-400); Red Blood Count 4.25 MC/CUMM (3.8-5.5); Red Cell Distribution Width 15.2 % (9.3-17.3); White Blood Count 7.7 T/CUMM (4-12)
[2019-05-13 16:41] LABS: INR 1.5; PT Patient Result 15.6 SECS (9.8-11.9); Partial Thromboplastin Time 34.1 SECS (23.9-33.8)
[2019-05-13] MEDS ORDERED: hydrALAZINE 20 MG/1 ML VIAL IV STA (16:47)
[2019-05-13 16:55] LABS: Albumin 3.5 G/DL (3.4-5.0); Bilirubin,Total 0.5 MG/DL (0.2-1.0); Calcium 8.9 MG/DL (8.5-10.1); Total Protein 7.7 G/DL (6.4-8.3)
[2019-05-13 16:56] LABS: Troponin I < 0.015 NG/ML (0.00-0.045)
[2019-05-13 17:04] LABS: Apearance,Urine Slightly Hazy (Clear); Bacteria,Urine Occasional /HPF (Few); Bilirubin,Urine Negative (Negative); Blood, Urine Negative (Negative); Glucose,Urine (UA) 50 mg/dL (Negative); Hyaline Casts,Urine 1 /LPF (0-3); Ketones,Urine Negative (Negative); Mucus,Urine Occasional /LPF (Occasional); Nitrite,Urine Negative (Negative); Protein,Urine 100 MG/DL; RBC,Urine 6 /HPF (0-4); Squamous Epithelial Cell,Urine Occasional /HPF (0-10); Urine Color Yellow (Yellow); Urine Urobilinogen < 2.0 EU/DL (0.2-1.0); WBC,Urine 6 /HPF (0-6)
[2019-05-13] MEDS ORDERED: AMOXICILLIN/CLAV 875 MG TABLET PO ONE (17:12)
[2019-05-13] MEDS ORDERED: LACTULOSE 20 GM/30 ML UDCUP PO PRN (17:35)
[2019-05-13] MEDS ORDERED: ACETAMINOPHEN 325 MG TABLET PO PRN (17:35)
[2019-05-13] MEDS ORDERED: GLUCAGON 1 MG VIAL IM PRN ×2 (17:35)
[2019-05-13] MEDS ORDERED: DEXTROSE 50% 25 GM/50 ML VIAL IV PRN (17:35)
[2019-05-13] MEDS ORDERED: DEXTROSE 10% 250 ML BAG IV PRN (17:35)
[2019-05-13] MEDS ORDERED: DOCUSATE SODIUM 100 MG CAPSULE PO PRN (17:35)
[2019-05-13] MEDS ORDERED: ONDANSETRON 4 MG/2 ML VIAL IV PRN (17:35)
[2019-05-13] MEDS ORDERED: ALUMINUM/MAGNES/SIMETH MAX STR 30 ML UDCUP PO PRN (17:35)
[2019-05-13] MEDS ORDERED: hydrALAZINE 20 MG/1 ML VIAL IV PRN (17:35)
[2019-05-13] MEDS ORDERED: WARFARIN 5 MG TABLET PO SCH (20:00)
[2019-05-13] MEDS ORDERED: INSULIN REGULAR 100 UNIT/ML SUBCUT SCH (21:00)
[2019-05-13] MEDS: cefTRIAXone 1,000 MG in SYRINGE 1 EACH IV SCH (21:06)
[2019-05-13] MEDS: hydrALAZINE 25 MG TABLET PO SCH (21:06)
[2019-05-13] MEDS: busPIRone 15 MG TABLET PO SCH (21:06)
[2019-05-13] MEDS: METOPROLOL TARTRATE 100 MG TABLET PO SCH (21:06)
[2019-05-13] MEDS: INSULIN REGULAR 100 UNIT/ML SUBCUT SCH (21:10)
[2019-05-14 05:30] LABS: Basophils % 0.6 % (0.0-0.8); Eosinophils # 0.2 10*3/uL (0.0-0.87); Eosinophils % 2.6 % (0.00-10.9); Hematocrit 37.3 VOL% (35.7-47.0); Hemoglobin 11.5 GM/DL (12.0-16.0); Immature Granulocytes % 0.2 %; Immature Granulocytes Absolute 0.01 #; Lymphocytes # 1.1 10*3/uL (1.4-4.0); Lymphocytes % 16.2 % (21.3-54.2); Mean Corpuscular HGB Conc 30.8 GM/DL (32-36); Mean Platelet Volume 10.5 FL (9.6-12.0); Monocytes % 10.9 % (1.7-12.7); Neutrophils % 69.5 % (38.7-73.9); Platelet Count 183 T/CUMM (130-400); Red Blood Count 3.97 MC/CUMM (3.8-5.5); Red Cell Distribution Width 15.3 % (9.3-17.3); White Blood Count 6.5 T/CUMM (4-12)
[2019-05-14 06:06] LABS: Calcium 8.4 MG/DL (8.5-10.1); Osmolality,Calculated 277.8 MOS/KG (273-304); Risk Ratio 3.71; Thyroid Stimulating Hormone 0.765 uIU/ml (0.358-3.74); VLDL CHOLESTEROL 31.4 MG/DL
[2019-05-14] MEDS: INSULIN REGULAR 100 UNIT/ML SUBCUT SCH ×4 (07:53→21:33)
[2019-05-14] MEDS ORDERED: FUROSEMIDE 40 MG/4 ML VIAL IV ONE (08:31)
[2019-05-14] MEDS: EZETIMIBE 10 MG TABLET PO SCH (08:52)
[2019-05-14] MEDS: busPIRone 15 MG TABLET PO SCH ×2 (08:52→21:32)
[2019-05-14] MEDS: POTASSIUM CHLORIDE 20 MEQ TABLET PO SCH (08:52)
[2019-05-14] MEDS: VENLAFAXINE XR 75 MG CAPSULE PO SCH (08:52)
[2019-05-14] MEDS: LOSARTAN 50 MG TABLET PO SCH (08:53)
[2019-05-14] MEDS: ISOSORBIDE MONONITRATE 60 MG TABLET PO SCH (08:53)
[2019-05-14] MEDS: PANTOPRAZOLE 40 MG TABLET PO SCH (08:53)
[2019-05-14] MEDS: METOPROLOL TARTRATE 100 MG TABLET PO SCH ×2 (08:54→21:32)
[2019-05-14] MEDS: CLOPIDOGREL 75 MG TABLET PO SCH (08:54)
[2019-05-14] MEDS: POTASSIUM CHLORIDE 20 MEQ TABLET PO PRN ×3 (08:54→13:45)
[2019-05-14] MEDS: hydrALAZINE 25 MG TABLET PO SCH (08:54)
[2019-05-14] MEDS ORDERED: FUROSEMIDE 40 MG/4 ML VIAL IV SCH (09:00)
[2019-05-14] MEDS: FUROSEMIDE 40 MG/4 ML VIAL IV SCH (16:28)
[2019-05-14] MEDS ORDERED: WARFARIN 2.5 MG TABLET PO ONE (17:00)
[2019-05-14] MEDS ORDERED: WARFARIN 2.5 MG TABLET PO SCH (18:00)
[2019-05-14] MEDS: cefTRIAXone 1,000 MG in SYRINGE 1 EACH IV SCH (21:35)
[2019-05-15 05:28] LABS: Calcium 8.4 MG/DL (8.5-10.1); Osmolality,Calculated 283.7 MOS/KG (273-304)
[2019-05-15 05:32] LABS: INR 1.8; PT Patient Result 19.2 SECS (9.8-11.9)
[2019-05-15] MEDS: FUROSEMIDE 40 MG/4 ML VIAL IV SCH (08:15)
[2019-05-15] MEDS: INSULIN REGULAR 100 UNIT/ML SUBCUT SCH ×2 (08:15→11:34)
[2019-05-15] MEDS: busPIRone 15 MG TABLET PO SCH (08:16)
[2019-05-15] MEDS: POTASSIUM CHLORIDE 20 MEQ TABLET PO SCH (08:16)
[2019-05-15] MEDS: LOSARTAN 50 MG TABLET PO SCH (08:16)
[2019-05-15] MEDS: EZETIMIBE 10 MG TABLET PO SCH (08:16)
[2019-05-15] MEDS: ISOSORBIDE MONONITRATE 60 MG TABLET PO SCH (08:16)
[2019-05-15] MEDS: VENLAFAXINE XR 75 MG CAPSULE PO SCH (08:16)
[2019-05-15] MEDS: PANTOPRAZOLE 40 MG TABLET PO SCH (08:16)
[2019-05-15] MEDS: METOPROLOL TARTRATE 100 MG TABLET PO SCH (08:16)
[2019-05-15] MEDS: CLOPIDOGREL 75 MG TABLET PO SCH (08:16)
[2019-05-15] MEDS ORDERED: PIOGLITAZONE 15 MG TABLET PO SCH (10:05)
[2019-05-15] MEDS ORDERED: clonazePAM 0.5 MG TABLET PO SCH (10:05)
[2019-05-15] MEDS ORDERED: TUBERCULIN SKIN TEST 0.1 ML SYRINGE INTRADERM ONE (10:21)
[2019-05-15 10:47] LABS: Basophils % 0.5 % (0.0-0.8); Eosinophils # 0.2 10*3/uL (0.0-0.87); Eosinophils % 2.4 % (0.00-10.9); Hemoglobin 10.8 GM/DL (12.0-16.0); Immature Granulocytes % 0.3 %; Immature Granulocytes Absolute 0.02 #; Lymphocytes # 1.1 10*3/uL (1.4-4.0); Lymphocytes % 17.7 % (21.3-54.2); Mean Platelet Volume 10.3 FL (9.6-12.0); Monocytes % 10.2 % (1.7-12.7); Neutrophils % 68.9 % (38.7-73.9); Platelet Count 161 T/CUMM (130-400); Red Blood Count 3.71 MC/CUMM (3.8-5.5); Red Cell Distribution Width 15.2 % (9.3-17.3); White Blood Count 6.2 T/CUMM (4-12)
[2019-05-15 11:38] VITALS: BP 162/83
[2019-05-15] MEDS ORDERED: metOLazone 2.5 MG TABLET PO SCH (12:00)
[2019-05-15] MEDS ORDERED: FUROSEMIDE 40 MG/4 ML VIAL IV SCH (16:00)
[2019-05-15] MEDS ORDERED: FUROSEMIDE 40 MG TABLET PO SCH (16:00)
[2019-05-15] MEDS ORDERED: LOSARTAN 50 MG TABLET PO SCH (21:00)
[2019-05-16] MEDS ORDERED: LOSARTAN 50 MG TABLET PO SCH (09:00)
== END 2019-05-15 15:40 | DRG 291 ==
LOC: N.ED 15:11 → N.EDINP 17:35 → N.TELES 18:02
PROVIDERS: ADMIT Internal Medicine; ATTEND Internal Medicine

== ENCOUNTER 2019-06-10 17:20 | Observation (INO) ==
[2019-06-10 18:04] LABS: Basophils % 0.4 % (0.0-0.8); Eosinophils # 0.3 10*3/uL (0.0-0.87); Eosinophils % 4.9 % (0.00-10.9); Hematocrit 34.4 VOL% (35.7-47.0); Hemoglobin 10.5 GM/DL (12.0-16.0); Immature Granulocytes % 0.1 %; Immature Granulocytes Absolute 0.01 #; Lymphocytes # 1.5 10*3/uL (1.4-4.0); Lymphocytes % 22.1 % (21.3-54.2); Mean Corpuscular HGB Conc 30.5 GM/DL (32-36); Mean Corpuscular Volume 92.7 FL (87-102); Mean Platelet Volume 10.9 FL (9.6-12.0); Monocytes % 10.3 % (1.7-12.7); Neutrophils % 62.2 % (38.7-73.9); Platelet Count 176 T/CUMM (130-400); Red Blood Count 3.71 MC/CUMM (3.8-5.5); Red Cell Distribution Width 13.6 % (9.3-17.3); White Blood Count 6.8 T/CUMM (4-12)
[2019-06-10] MEDS ORDERED: ASPIRIN 325 MG TABLET PO STA (18:11)
[2019-06-10 18:17] LABS: Alanine Aminotransferase 33 U/L (13-56); Albumin 3.3 G/DL (3.4-5.0); Alkaline Phosphatase 104 U/L (45-117); Aspartate Amino Transferase 24 U/L (0-37); Bilirubin,Total < 0.39 MG/DL (0.2-1.0); Blood Urea Nitrogen 76 MG/DL (7-18); Calcium 8.7 MG/DL (8.5-10.1); Estimated Glom Filtration Rate 14 ML/MIN; Glucose 110 MG/DL (74-106); Osmolality,Calculated 291.2 MOS/KG (273-304); Total Protein 7.3 G/DL (6.4-8.3)
[2019-06-10 18:26] LABS: INR 1.1; PT Patient Result 11.3 SECS (9.8-11.9)
[2019-06-10] MEDS ORDERED: DEXTROSE 10% 250 ML BAG IV PRN (19:41)
[2019-06-10] MEDS ORDERED: GLUCAGON 1 MG VIAL IM PRN (19:41)
[2019-06-10] MEDS ORDERED: ONDANSETRON 4 MG/2 ML VIAL IV PRN (19:49)
[2019-06-10] MEDS ORDERED: ACETAMINOPHEN 325 MG TABLET PO PRN (19:49)
[2019-06-10] MEDS: SODIUM CHLORIDE 0.9% 1,000 ML IV SCH (22:00)
[2019-06-10] MEDS: INSULIN LISPRO 100 UNIT/ML SUBCUT SCH (22:49)
[2019-06-10] MEDS: ENOXAPARIN 30 MG/0.3 ML SYRINGE SUBCUT SCH (23:29)
[2019-06-11 01:28] LABS: Calcium 8.5 MG/DL (8.5-10.1); Osmolality,Calculated 295.2 MOS/KG (273-304); Thyroid Stimulating Hormone 1.14 uIU/ml (0.358-3.74)
[2019-06-11 01:39] LABS: Basophils % 0.6 % (0.0-0.8); Eosinophils # 0.3 10*3/uL (0.0-0.87); Eosinophils % 5.5 % (0.00-10.9); Hematocrit 34.1 VOL% (35.7-47.0); Hemoglobin 10.3 GM/DL (12.0-16.0); Immature Granulocytes % 0.3 %; Immature Granulocytes Absolute 0.02 #; Lymphocytes # 1.4 10*3/uL (1.4-4.0); Lymphocytes % 22.1 % (21.3-54.2); Mean Corpuscular HGB Conc 30.2 GM/DL (32-36); Mean Corpuscular Volume 96.1 FL (87-102); Mean Platelet Volume 10.8 FL (9.6-12.0); Monocytes % 9.1 % (1.7-12.7); Neutrophils % 62.4 % (38.7-73.9); Platelet Count 175 T/CUMM (130-400); Red Blood Count 3.55 MC/CUMM (3.8-5.5); Red Cell Distribution Width 13.4 % (9.3-17.3); White Blood Count 6.2 T/CUMM (4-12)
[2019-06-11] MEDS: SODIUM CHLORIDE 0.9% 1,000 ML IV SCH ×2 (05:25→18:25)
[2019-06-11] MEDS ORDERED: FUROSEMIDE 20 MG/2 ML VIAL IV SCH (08:00)
[2019-06-11] MEDS: INSULIN LISPRO 100 UNIT/ML SUBCUT SCH ×4 (08:25→21:31)
[2019-06-11] MEDS: PANTOPRAZOLE 40 MG TABLET PO SCH (08:55)
[2019-06-11] MEDS: OLANZapine 5 MG TABLET PO SCH ×2 (11:13→20:57)
[2019-06-11] MEDS: CLOPIDOGREL 75 MG TABLET PO SCH (11:14)
[2019-06-11] MEDS: OXcarbazepine 300 MG TABLET PO SCH ×2 (11:14→20:59)
[2019-06-11] MEDS: EZETIMIBE 10 MG TABLET PO SCH (11:14)
[2019-06-11] MEDS: busPIRone 15 MG TABLET PO SCH ×2 (11:14→20:57)
[2019-06-11] MEDS: ISOSORBIDE MONONITRATE 60 MG TABLET PO SCH (11:14)
[2019-06-11] MEDS: POLYETHYLENE GLYCOL POWDER 17 GM PACK PO SCH (11:14)
[2019-06-11] MEDS: amLODIPine 5 MG TABLET PO SCH (11:14)
[2019-06-11] MEDS: METOPROLOL TARTRATE 100 MG TABLET PO SCH ×2 (11:14→20:57)
[2019-06-11] MEDS: WARFARIN 3 MG TABLET PO SCH (17:32)
[2019-06-11] MEDS: clonazePAM 0.5 MG TABLET PO SCH (20:59)
[2019-06-11] MEDS: ENOXAPARIN 30 MG/0.3 ML SYRINGE SUBCUT SCH (21:00)
[2019-06-12] MEDS: SODIUM CHLORIDE 0.9% 1,000 ML IV SCH ×2 (06:42→13:00)
[2019-06-12 06:54] LABS: Calcium 8.2 MG/DL (8.5-10.1)
[2019-06-12] MEDS: EZETIMIBE 10 MG TABLET PO SCH (09:13)
[2019-06-12] MEDS: OXcarbazepine 300 MG TABLET PO SCH ×2 (09:14→21:19)
[2019-06-12] MEDS: CLOPIDOGREL 75 MG TABLET PO SCH (09:14)
[2019-06-12] MEDS: OLANZapine 5 MG TABLET PO SCH ×2 (09:14→21:11)
[2019-06-12] MEDS: ISOSORBIDE MONONITRATE 60 MG TABLET PO SCH (09:15)
[2019-06-12] MEDS: METOPROLOL TARTRATE 100 MG TABLET PO SCH ×2 (09:15→21:11)
[2019-06-12] MEDS: PANTOPRAZOLE 40 MG TABLET PO SCH (09:16)
[2019-06-12] MEDS: amLODIPine 5 MG TABLET PO SCH (09:16)
[2019-06-12] MEDS: POLYETHYLENE GLYCOL POWDER 17 GM PACK PO SCH (09:17)
[2019-06-12] MEDS: INSULIN LISPRO 100 UNIT/ML SUBCUT SCH ×4 (09:18→21:13)
[2019-06-12] MEDS: busPIRone 15 MG TABLET PO SCH ×2 (09:32→21:11)
[2019-06-12] MEDS: WARFARIN 3 MG TABLET PO SCH (17:58)
[2019-06-12] MEDS ORDERED: FLUTICASONE 50 MCG NASAL SPRAY 16 GM BOTTLE BOTH NARES PRN (18:08)
[2019-06-12] MEDS: ENOXAPARIN 30 MG/0.3 ML SYRINGE SUBCUT SCH (21:10)
[2019-06-12] MEDS: clonazePAM 0.5 MG TABLET PO SCH (21:11)
[2019-06-13] MEDS: SODIUM CHLORIDE 0.9% 1,000 ML IV SCH (01:30)
[2019-06-13 06:42] LABS: Calcium 8.5 MG/DL (8.5-10.1); Osmolality,Calculated 288.8 MOS/KG (273-304)
[2019-06-13] MEDS: INSULIN LISPRO 100 UNIT/ML SUBCUT SCH ×2 (07:51→12:04)
[2019-06-13] MEDS: CLOPIDOGREL 75 MG TABLET PO SCH (08:27)
[2019-06-13] MEDS: OXcarbazepine 300 MG TABLET PO SCH (08:27)
[2019-06-13] MEDS: OLANZapine 5 MG TABLET PO SCH (08:28)
[2019-06-13] MEDS: METOPROLOL TARTRATE 100 MG TABLET PO SCH (08:28)
[2019-06-13] MEDS: PANTOPRAZOLE 40 MG TABLET PO SCH (08:28)
[2019-06-13] MEDS: busPIRone 15 MG TABLET PO SCH (08:28)
[2019-06-13] MEDS: EZETIMIBE 10 MG TABLET PO SCH (08:29)
[2019-06-13] MEDS: ISOSORBIDE MONONITRATE 60 MG TABLET PO SCH (08:29)
[2019-06-13] MEDS: POLYETHYLENE GLYCOL POWDER 17 GM PACK PO SCH (08:29)
[2019-06-13] MEDS: amLODIPine 5 MG TABLET PO SCH (08:29)
[2019-06-13 12:52] VITALS: BP 151/63
== END 2019-06-13 13:30 ==
LOC: EDUNIT# → EDBD → N.EDINP 17:20 → N.ED 17:20 → N.3E 21:03
PROVIDERS: ADMIT Internal Medicine Geriatric Medicine; ATTEND Internal Medicine Geriatric Medicine

== ENCOUNTER 2021-03-28 20:38 | Inpatient (IN) ==
[2021-03-28] MEDS ORDERED: PANTOPRAZOLE 40 MG VIAL IV STA (21:46)
[2021-03-28] MEDS ORDERED: ALUM/MAG/SIMETH/LIDO VISC 1:1 30 ML BOTTLE PO STA (21:46)
[2021-03-28] MEDS ORDERED: SODIUM CHLORIDE 0.9% 500 ML IV STA (21:46)
[2021-03-28] MEDS ORDERED: ONDANSETRON 4 MG/2 ML VIAL IV STA (21:46)
[2021-03-28 22:19] LABS: Basophils % 0.3 % (0.0-0.8); Eosinophils % 0.3 % (0.00-10.9); Hemoglobin 9.7 GM/DL (12.0-16.0); Immature Granulocytes % 0.7 %; Immature Granulocytes Absolute 0.07 #; Lymphocytes # 0.9 10*3/uL (1.4-4.0); Lymphocytes % 7.9 % (21.3-54.2); Mean Corpuscular HGB Conc 31.3 GM/DL (32-36); Mean Corpuscular Volume 96.3 FL (87-102); Mean Platelet Volume 10.3 FL (9.6-12.0); Monocytes % 7.5 % (1.7-12.7); Neutrophils % 83.3 % (38.7-73.9); Platelet Count 183 T/CUMM (130-400); Red Blood Count 3.22 MC/CUMM (3.8-5.5); Red Cell Distribution Width 13.3 % (9.3-17.3); White Blood Count 10.8 T/CUMM (4-12)
[2021-03-28 22:40] LABS: Albumin 3.4 G/DL (3.4-5.0); Bilirubin,Total 1.1 MG/DL (0.20-1.00); Calcium 8.7 MG/DL (8.5-10.1); Osmolality,Calculated 291.2 MOS/KG (273-304); Potassium 4.3 MMOL/L (3.5-5.1); Total Protein 7.7 G/DL (6.4-8.2)
[2021-03-29 00:13] LABS: PT Patient Result 108.6 SECS (10.5-12.0)
[2021-03-29 00:19] LABS: INR 11.5
[2021-03-29] MEDS ORDERED: PHYTONADIONE 10 MG/1 ML AMP SUBCUT STA (00:27)
[2021-03-29] MEDS ORDERED: ACETAMINOPHEN 325 MG TABLET PO PRN (00:40)
[2021-03-29] MEDS ORDERED: DEXTROSE 10% 250 ML BAG IV PRN (00:40)
[2021-03-29] MEDS ORDERED: DEXTROSE 50% 25 GM/50 ML VIAL IV PRN (00:40)
[2021-03-29] MEDS ORDERED: diphenhydrAMINE CAP 25 MG CAPSULE PO PRN (00:40)
[2021-03-29] MEDS ORDERED: guaiFENesin/DM ER 600-30 MG TABLET PO PRN (00:40)
[2021-03-29] MEDS ORDERED: NICOTINE 21 MG/24 HR PATCH TRANSDERM PRN (00:40)
[2021-03-29] MEDS ORDERED: GLUCAGON 1 MG VIAL IM PRN ×2 (00:40)
[2021-03-29] MEDS ORDERED: hydrALAZINE 20 MG/1 ML VIAL IV PRN (00:40)
[2021-03-29 04:09] LABS: Bacteria,Urine Moderate /HPF (Few); Bilirubin,Urine Negative (Negative); Blood, Urine Negative (Negative); Glucose,Urine (UA) 50 mg/dL (Negative); Ketones,Urine Negative (Negative); Mucus,Urine Occasional /LPF (Occasional); Nitrite,Urine Negative (Negative); Protein,Urine 30 MG/DL; RBC,Urine 1 /HPF (0-4); Squamous Epithelial Cell,Urine Occasional /HPF (0-10); Urine Appearance CLOUDY (Clear); Urine Color Yellow (Yellow); Urine Specific Gravity 1.012 (1.001-1.035); Urine Urobilinogen < 2.0 EU/DL (<2.0)
[2021-03-29 07:04] LABS: Basophils % 0.4 % (0.0-0.8); Eosinophils # 0.1 10*3/uL (0.0-0.87); Eosinophils % 0.6 % (0.00-10.9); Hematocrit 27.4 VOL% (35.7-47.0); Hemoglobin 8.9 GM/DL (12.0-16.0); Immature Granulocytes % 0.6 %; Immature Granulocytes Absolute 0.06 #; Lymphocytes # 0.9 10*3/uL (1.4-4.0); Lymphocytes % 9.3 % (21.3-54.2); Mean Corpuscular HGB Conc 32.5 GM/DL (32-36); Mean Corpuscular Volume 94.8 FL (87-102); Mean Platelet Volume 10.4 FL (9.6-12.0); Monocytes % 9.6 % (1.7-12.7); Neutrophils % 79.5 % (38.7-73.9); Platelet Count 173 T/CUMM (130-400); Red Blood Count 2.89 MC/CUMM (3.8-5.5); Red Cell Distribution Width 13.3 % (9.3-17.3); White Blood Count 9.8 T/CUMM (4-12)
[2021-03-29 07:24] LABS: Calcium 8.7 MG/DL (8.5-10.1); Osmolality,Calculated 289.4 MOS/KG (273-304); Potassium 4.4 MMOL/L (3.5-5.1); Risk Ratio 3.22
[2021-03-29 07:29] LABS: PT Patient Result 88.1 SECS (10.5-12.0); Partial Thromboplastin Time 84.4 SECS (23.8-32.1)
[2021-03-29 07:32] LABS: INR 9.2
[2021-03-29] MEDS: EZETIMIBE 10 MG TABLET PO SCH (08:51)
[2021-03-29] MEDS: METOPROLOL TARTRATE 100 MG TABLET PO SCH ×2 (08:51→21:19)
[2021-03-29] MEDS: INSULIN LISPRO 100 UNIT/ML SUBCUT SCH ×4 (08:51→21:30)
[2021-03-29] MEDS: amLODIPine 5 MG TABLET PO SCH (08:51)
[2021-03-29] MEDS: hydrALAZINE 25 MG TABLET PO SCH ×3 (08:51→21:19)
[2021-03-29] MEDS: DOCUSATE SODIUM 100 MG CAPSULE PO SCH ×2 (08:51→21:19)
[2021-03-29] MEDS: POLYETHYLENE GLYCOL POWDER 17 GM PACK PO SCH (08:52)
[2021-03-29] MEDS ORDERED: BISACODYL 5 MG TABLET PO SCH (09:00)
[2021-03-29] MEDS ORDERED: PHYTONADIONE INJ 10 MG in SODIUM CHLORIDE 0.9% 50 ML IV ONE (10:00)
[2021-03-29] MEDS: ONDANSETRON 4 MG/2 ML VIAL IV SCH ×2 (16:46→21:20)
[2021-03-29] MEDS: cefTRIAXone 1,000 MG in SODIUM CHLORIDE 0.9% 100 ML IV SCH (20:21)
[2021-03-29] MEDS: fentaNYL 12 MCG/HR PATCH TRANSDERM SCH (20:22)
[2021-03-29] MEDS: ZALEPLON 5 MG CAPSULE PO PRN (21:19)
[2021-03-29] MEDS: ESCITALOPRAM 10 MG TABLET PO SCH (21:19)
[2021-03-30] MEDS: ONDANSETRON 4 MG/2 ML VIAL IV SCH ×4 (04:11→23:48)
[2021-03-30 05:43] LABS: Basophils % 0.3 % (0.0-0.8); Eosinophils # 0.2 10*3/uL (0.0-0.87); Eosinophils % 1.7 % (0.00-10.9); Hematocrit 26.9 VOL% (35.7-47.0); Hemoglobin 8.7 GM/DL (12.0-16.0); Immature Granulocytes % 0.6 %; Immature Granulocytes Absolute 0.06 #; Lymphocytes % 9.4 % (21.3-54.2); Mean Corpuscular HGB Conc 32.3 GM/DL (32-36); Mean Corpuscular Volume 96.4 FL (87-102); Mean Platelet Volume 10.4 FL (9.6-12.0); Monocytes % 10.3 % (1.7-12.7); Neutrophils % 77.7 % (38.7-73.9); Platelet Count 194 T/CUMM (130-400); Red Blood Count 2.79 MC/CUMM (3.8-5.5); Red Cell Distribution Width 13.6 % (9.3-17.3); White Blood Count 10.2 T/CUMM (4-12)
[2021-03-30 05:55] LABS: INR 1.4; PT Patient Result 15.3 SECS (10.5-12.0)
[2021-03-30 06:07] LABS: Calcium 8.8 MG/DL (8.5-10.1); Osmolality,Calculated 287.4 MOS/KG (273-304); Potassium 4.3 MMOL/L (3.5-5.1)
[2021-03-30] MEDS: LINACLOTIDE 145 MCG CAPSULE PO SCH (09:28)
[2021-03-30] MEDS: INSULIN LISPRO 100 UNIT/ML SUBCUT SCH ×4 (09:46→23:47)
[2021-03-30] MEDS: DOCUSATE SODIUM 100 MG CAPSULE PO SCH ×2 (09:48→23:47)
[2021-03-30] MEDS: amLODIPine 5 MG TABLET PO SCH (09:48)
[2021-03-30] MEDS: POLYETHYLENE GLYCOL POWDER 17 GM PACK PO SCH ×3 (09:48→23:46)
[2021-03-30] MEDS: CHOLECALCIFEROL 1,000 UNIT TABLET PO SCH (09:48)
[2021-03-30] MEDS: METOPROLOL TARTRATE 100 MG TABLET PO SCH ×2 (09:48→23:48)
[2021-03-30] MEDS: hydrALAZINE 25 MG TABLET PO SCH ×3 (09:48→23:46)
[2021-03-30] MEDS: EZETIMIBE 10 MG TABLET PO SCH (09:48)
[2021-03-30] MEDS: cefTRIAXone 1,000 MG in SODIUM CHLORIDE 0.9% 100 ML IV SCH (09:50)
[2021-03-30] MEDS ORDERED: WARFARIN 5 MG TABLET PO SCH (11:00)
[2021-03-30] MEDS: ENOXAPARIN 80 MG/0.8 ML SYRINGE SUBCUT SCH (13:40)
[2021-03-30] MEDS: LACTULOSE 20 GM/30 ML UDCUP PO SCH ×2 (13:43→23:47)
[2021-03-30] MEDS: ESCITALOPRAM 10 MG TABLET PO SCH (23:47)
[2021-03-31] MEDS: POLYETHYLENE GLYCOL POWDER 17 GM PACK PO SCH ×7 (00:08→21:54)
[2021-03-31] MEDS: ONDANSETRON 4 MG/2 ML VIAL IV SCH ×4 (04:39→21:43)
[2021-03-31 06:52] LABS: Basophils % 0.5 % (0.0-0.8); Eosinophils # 0.2 10*3/uL (0.0-0.87); Eosinophils % 2.4 % (0.00-10.9); Hemoglobin 8.8 GM/DL (12.0-16.0); Immature Granulocytes % 0.8 %; Immature Granulocytes Absolute 0.07 #; Lymphocytes # 1.1 10*3/uL (1.4-4.0); Mean Corpuscular HGB Conc 31.4 GM/DL (32-36); Mean Corpuscular Volume 97.6 FL (87-102); Monocytes % 9.3 % (1.7-12.7); NRBC # 0.02 10*3/uL; Platelet Count 205 T/CUMM (130-400); Red Blood Count 2.87 MC/CUMM (3.8-5.5); Red Cell Distribution Width 13.8 % (9.3-17.3); White Blood Count 8.8 T/CUMM (4-12)
[2021-03-31 07:00] LABS: INR 1.2; PT Patient Result 13.6 SECS (10.5-12.0)
[2021-03-31 07:06] LABS: Calcium 8.6 MG/DL (8.5-10.1); Osmolality,Calculated 280.4 MOS/KG (273-304); Potassium 3.7 MMOL/L (3.5-5.1)
[2021-03-31] MEDS: INSULIN LISPRO 100 UNIT/ML SUBCUT SCH ×4 (07:44→21:44)
[2021-03-31] MEDS: CHOLECALCIFEROL 1,000 UNIT TABLET PO SCH (09:41)
[2021-03-31] MEDS: METOPROLOL TARTRATE 100 MG TABLET PO SCH ×2 (09:41→21:42)
[2021-03-31] MEDS: ENOXAPARIN 80 MG/0.8 ML SYRINGE SUBCUT SCH (09:41)
[2021-03-31] MEDS: hydrALAZINE 25 MG TABLET PO SCH ×3 (09:41→21:42)
[2021-03-31] MEDS: amLODIPine 5 MG TABLET PO SCH (09:41)
[2021-03-31] MEDS: EZETIMIBE 10 MG TABLET PO SCH (09:41)
[2021-03-31] MEDS: LINACLOTIDE 145 MCG CAPSULE PO SCH (09:49)
[2021-03-31] MEDS: DOCUSATE SODIUM 100 MG CAPSULE PO SCH ×2 (09:49→21:42)
[2021-03-31] MEDS: LACTULOSE 20 GM/30 ML UDCUP PO SCH (09:49)
[2021-03-31] MEDS: cefTRIAXone 1,000 MG in SODIUM CHLORIDE 0.9% 100 ML IV SCH (11:10)
[2021-03-31] MEDS: WARFARIN 7.5 MG TABLET PO SCH (12:30)
[2021-03-31] MEDS ORDERED: TUBERCULIN SKIN TEST 0.1 ML SYRINGE INTRADERM ONE (13:00)
[2021-03-31] MEDS ORDERED: traMADol 50 MG TABLET PO PRN (18:39)
[2021-03-31] MEDS: ESCITALOPRAM 10 MG TABLET PO SCH (21:42)
[2021-03-31] MEDS: ZALEPLON 5 MG CAPSULE PO PRN (21:42)
[2021-04-01] MEDS: ONDANSETRON 4 MG/2 ML VIAL IV SCH ×4 (04:56→21:23)
[2021-04-01 05:31] LABS: Basophils # 0.1 10*3/uL (0.0-0.2); Basophils % 0.6 % (0.0-0.8); Eosinophils # 0.3 10*3/uL (0.0-0.87); Eosinophils % 3.6 % (0.00-10.9); Hematocrit 30.1 VOL% (35.7-47.0); Hemoglobin 9.5 GM/DL (12.0-16.0); Immature Granulocytes % 0.8 %; Immature Granulocytes Absolute 0.07 #; Lymphocytes # 1.1 10*3/uL (1.4-4.0); Lymphocytes % 13.8 % (21.3-54.2); Mean Corpuscular HGB Conc 31.6 GM/DL (32-36); Mean Platelet Volume 9.9 FL (9.6-12.0); Monocytes % 9.2 % (1.7-12.7); Platelet Count 219 T/CUMM (130-400); Red Blood Count 3.07 MC/CUMM (3.8-5.5); White Blood Count 8.3 T/CUMM (4-12)
[2021-04-01 05:47] LABS: INR 1.6; PT Patient Result 17.9 SECS (10.5-12.0)
[2021-04-01 06:00] LABS: Calcium 8.9 MG/DL (8.5-10.1); Osmolality,Calculated 280.4 MOS/KG (273-304); Potassium 4.2 MMOL/L (3.5-5.1)
[2021-04-01] MEDS: INSULIN LISPRO 100 UNIT/ML SUBCUT SCH ×4 (07:30→21:23)
[2021-04-01] MEDS: amLODIPine 5 MG TABLET PO SCH (09:53)
[2021-04-01] MEDS: WARFARIN 7.5 MG TABLET PO SCH (09:53)
[2021-04-01] MEDS: METOPROLOL TARTRATE 100 MG TABLET PO SCH ×2 (09:53→21:50)
[2021-04-01] MEDS: fentaNYL 12 MCG/HR PATCH TRANSDERM SCH (09:53)
[2021-04-01] MEDS: CHOLECALCIFEROL 1,000 UNIT TABLET PO SCH (09:53)
[2021-04-01] MEDS: DOCUSATE SODIUM 100 MG CAPSULE PO SCH ×2 (09:53→21:22)
[2021-04-01] MEDS: ENOXAPARIN 80 MG/0.8 ML SYRINGE SUBCUT SCH (09:53)
[2021-04-01] MEDS: POLYETHYLENE GLYCOL POWDER 17 GM PACK PO SCH ×2 (09:53→21:50)
[2021-04-01] MEDS: hydrALAZINE 25 MG TABLET PO SCH ×3 (09:53→21:23)
[2021-04-01] MEDS: cefTRIAXone 1,000 MG in SODIUM CHLORIDE 0.9% 100 ML IV SCH (09:53)
[2021-04-01] MEDS: EZETIMIBE 10 MG TABLET PO SCH (09:53)
[2021-04-01] MEDS: LINACLOTIDE 145 MCG CAPSULE PO SCH (10:27)
[2021-04-01] MEDS: ESCITALOPRAM 10 MG TABLET PO SCH (21:22)
[2021-04-01] MEDS: ZALEPLON 5 MG CAPSULE PO PRN (21:24)
[2021-04-01] MEDS: POLYCARBOPHIL 625 MG TABLET PO SCH (22:31)
[2021-04-02] MEDS: ONDANSETRON 4 MG/2 ML VIAL IV SCH ×3 (02:45→16:16)
[2021-04-02 06:30] LABS: Basophils % 0.4 % (0.0-0.8); Eosinophils # 0.2 10*3/uL (0.0-0.87); Eosinophils % 3.3 % (0.00-10.9); Hematocrit 30.6 VOL% (35.7-47.0); Hemoglobin 9.7 GM/DL (12.0-16.0); Immature Granulocytes % 1.3 %; Immature Granulocytes Absolute 0.09 #; Lymphocytes # 1.1 10*3/uL (1.4-4.0); Lymphocytes % 15.3 % (21.3-54.2); Mean Corpuscular HGB Conc 31.7 GM/DL (32-36); Mean Corpuscular Volume 98.7 FL (87-102); Monocytes % 9.8 % (1.7-12.7); Neutrophils % 69.9 % (38.7-73.9); Platelet Count 230 T/CUMM (130-400); Red Cell Distribution Width 14.2 % (9.3-17.3); White Blood Count 7.1 T/CUMM (4-12)
[2021-04-02 06:41] LABS: Osmolality,Calculated 277.2 MOS/KG (273-304); Potassium 4.3 MMOL/L (3.5-5.1)
[2021-04-02 06:47] LABS: INR 2.9; PT Patient Result 29.9 SECS (10.5-12.0)
[2021-04-02] MEDS ORDERED: LINACLOTIDE 145 MCG CAPSULE PO SCH (07:30)
[2021-04-02] MEDS ORDERED: WARFARIN 5 MG TABLET PO SCH (09:00)
[2021-04-02] MEDS: METOPROLOL TARTRATE 100 MG TABLET PO SCH ×2 (09:56→21:49)
[2021-04-02] MEDS: amLODIPine 5 MG TABLET PO SCH (09:56)
[2021-04-02] MEDS: DOCUSATE SODIUM 100 MG CAPSULE PO SCH ×2 (09:56→21:50)
[2021-04-02] MEDS: hydrALAZINE 25 MG TABLET PO SCH ×3 (09:56→21:49)
[2021-04-02] MEDS: POLYETHYLENE GLYCOL POWDER 17 GM PACK PO SCH (09:56)
[2021-04-02] MEDS: CHOLECALCIFEROL 1,000 UNIT TABLET PO SCH (09:56)
[2021-04-02] MEDS: EZETIMIBE 10 MG TABLET PO SCH (09:56)
[2021-04-02] MEDS: LINACLOTIDE 145 MCG CAPSULE PO SCH (12:22)
[2021-04-02] MEDS: INSULIN LISPRO 100 UNIT/ML SUBCUT SCH ×4 (12:22→21:50)
[2021-04-02] MEDS: POLYCARBOPHIL 625 MG TABLET PO SCH ×2 (12:23→21:49)
[2021-04-02] MEDS: ENOXAPARIN 80 MG/0.8 ML SYRINGE SUBCUT SCH (12:25)
[2021-04-02] MEDS: cefTRIAXone 1,000 MG in SODIUM CHLORIDE 0.9% 100 ML IV SCH (16:16)
[2021-04-02] MEDS ORDERED: DEXTROSE 50% 25 GM/50 ML VIAL IV PRN (16:17)
[2021-04-02] MEDS ORDERED: GLUCAGON 1 MG VIAL IM PRN (16:17)
[2021-04-02] MEDS ORDERED: fentaNYL 25 MCG/HR PATCH TRANSDERM SCH (17:00)
[2021-04-02] MEDS ORDERED: cefTRIAXone 1,000 MG VIAL IM SCH (21:00)
[2021-04-02] MEDS: ESCITALOPRAM 10 MG TABLET PO SCH (21:49)
[2021-04-02] MEDS: ZALEPLON 5 MG CAPSULE PO PRN (21:49)
[2021-04-03 07:30] LABS: INR 2.8; PT Patient Result 28.8 SECS (10.5-12.0)
[2021-04-03] MEDS ORDERED: LINACLOTIDE 145 MCG CAPSULE PO SCH (07:30)
[2021-04-03 07:43] LABS: Calcium 8.5 MG/DL (8.5-10.1); Potassium 4.5 MMOL/L (3.5-5.1)
[2021-04-03] MEDS: DOCUSATE SODIUM 100 MG CAPSULE PO SCH (08:55)
[2021-04-03] MEDS: METOPROLOL TARTRATE 100 MG TABLET PO SCH (08:55)
[2021-04-03] MEDS: EZETIMIBE 10 MG TABLET PO SCH (08:55)
[2021-04-03] MEDS: CHOLECALCIFEROL 1,000 UNIT TABLET PO SCH (08:55)
[2021-04-03] MEDS: hydrALAZINE 25 MG TABLET PO SCH ×2 (08:56→14:29)
[2021-04-03] MEDS: POLYCARBOPHIL 625 MG TABLET PO SCH (08:57)
[2021-04-03] MEDS: amLODIPine 5 MG TABLET PO SCH (08:57)
[2021-04-03] MEDS ORDERED: WARFARIN 1 MG TABLET PO SCH (09:00)
[2021-04-03] MEDS: INSULIN LISPRO 100 UNIT/ML SUBCUT SCH ×2 (09:01→11:59)
[2021-04-03 09:03] LABS: Basophils % 0.4 % (0.2-1.0); Eosinophils # 0.2 # (0.0-0.70); Eosinophils % 2.9 % (0.0-10.0); Hematocrit 30.3 VOL% (37.0-47.0); Hemoglobin 9.7 GM/DL (12.0-16.0); Lymphocytes % 13.8 % (20.5-45.5); Mean Corpuscular Volume 97.4 FL (81-99); Mean Platelet Volume 10.1 FL (7.4-10.4); Monocytes % 8.9 % (5.5-11.7); Neutrophils % 73.2 % (43.0-65.0); Platelet Count 211 T/CUMM (130-400); Red Blood Count 3.11 MC/CUMM (4.20-5.40); Red Cell Distribution Width 14.7 % (11.5-15.5); White Blood Count 7.2 T/CUMM (4.8-10.8)
[2021-04-03 11:59] VITALS: BP 125/67
[2021-04-03] MEDS ORDERED: ONDANSETRON 4 MG TABLET PO PRN (12:42)
[2021-04-04] MEDS ORDERED: WARFARIN 2 MG TABLET PO SCH (09:00)
[2021-04-04] MEDS ORDERED: POLYETHYLENE GLYCOL POWDER 17 GM PACK PO SCH (09:00)
== END 2021-04-03 15:52 | DRG 948 ==
LOC: EDBD → EDUNIT# → N.ED 20:38 → N.EDINP 20:38 → SUATTDRO 03-29 00:40 → N.5E 03-29 02:53
PROVIDERS: ADMIT Internal Medicine; ATTEND Hospitalist

== ENCOUNTER 2021-08-07 18:58 | Inpatient (IN) ==
[2021-08-07 19:54] LABS: Basophils % 0.5 % (0.0-0.8); Eosinophils # 0.3 10*3/uL (0.0-0.87); Eosinophils % 3.8 % (0.00-10.9); Hematocrit 36.3 VOL% (35.7-47.0); Immature Granulocytes % 0.5 %; Immature Granulocytes Absolute 0.04 #; Lymphocytes % 13.4 % (21.3-54.2); Mean Corpuscular HGB Conc 30.3 GM/DL (32-36); Mean Corpuscular Volume 98.4 FL (87-102); Mean Platelet Volume 10.7 FL (9.6-12.0); Monocytes # 0.6 10*3/uL (0.11-0.8); Monocytes % 7.6 % (1.7-12.7); Neutrophils % 74.2 % (38.7-73.9); Platelet Count 179 T/CUMM (130-400); Red Blood Count 3.69 MC/CUMM (3.8-5.5); Red Cell Distribution Width 15.1 % (9.3-17.3); White Blood Count 7.7 T/CUMM (4-12)
[2021-08-07 20:04] LABS: PT Patient Result 21.4 SECS (10.5-12.0)
[2021-08-07 20:20] LABS: Alanine Aminotransferase < 9 U/L (13-56); Albumin 2.6 G/DL (3.4-5.0); Alkaline Phosphatase 106 U/L (45-117); Aspartate Amino Transferase 21 U/L (0-37); Blood Urea Nitrogen 50 MG/DL (7-18); Calcium 9.1 MG/DL (8.5-10.1); Carbon Dioxide 30 MMOL/L (21-32); Chloride 105 MMOL/L (98-107); Glucose 174 MG/DL (74-106); Osmolality,Calculated 299.1 MOS/KG (273-304); Potassium 4.4 MMOL/L (3.5-5.1); Sodium 142 MMOL/L (136-145); Total Protein 6.8 G/DL (6.4-8.2)
[2021-08-07] MEDS ORDERED: PIPERACILLIN/TAZOBACTAM 3,375 MG in SODIUM CHLORIDE 0.9% 100 ML IV STA (20:31)
[2021-08-07] MEDS ORDERED: VANCOMYCIN INJ 1,000 MG in SODIUM CHLORIDE 0.9% 250 ML IV STA (20:31)
[2021-08-07 21:53] LABS: Bilirubin,Urine Negative (Negative); Blood, Urine Negative (Negative); Glucose,Urine (UA) Negative (Negative); Hyaline Casts,Urine 4 /LPF (0-3); Ketones,Urine Negative (Negative); Mucus,Urine Occasional /LPF (Occasional); Nitrite,Urine Negative (Negative); Protein,Urine Negative (Negative); Urine Appearance Clear (Clear); Urine Color Yellow (Yellow); Urine Specific Gravity 1.015 (1.001-1.035); Urine Urobilinogen 0.2 eU/dL (<2.0)
[2021-08-07] MEDS ORDERED: ACETAMINOPHEN 325 MG TABLET PO ONE (21:54)
[2021-08-07] MEDS ORDERED: GLUCAGON 1 MG VIAL IM PRN (22:52)
[2021-08-07] MEDS ORDERED: MAGNESIUM SULF RIDER 4 GM/100 ML PREMIX IV PRN (22:52)
[2021-08-07] MEDS ORDERED: MAGNESIUM SULF RIDER 2 GM/50 ML PREMIX IV PRN (22:52)
[2021-08-07] MEDS ORDERED: ONDANSETRON 4 MG/2 ML VIAL IV PRN (22:52)
[2021-08-07] MEDS ORDERED: POTASSIUM CHLORIDE 20 MEQ TABLET PO PRN (22:52)
[2021-08-07] MEDS ORDERED: POTASSIUM CHLORIDE RIDER 10 MEQ/100 ML PREMIX IV PRN (23:00)
[2021-08-07] MEDS ORDERED: DEXTROSE 10% 250 ML BAG IV PRN (23:01)
[2021-08-07] MEDS ORDERED: FUROSEMIDE 40 MG/4 ML VIAL IV STA (23:33)
[2021-08-07] MEDS ORDERED: ALBUTEROL/IPRATROPIUM 3 ML NEB RESP TX ONE (23:38)
[2021-08-08] MEDS: ALBUTEROL/IPRATROPIUM 3 ML NEB RESP TX SCH ×3 (00:53→19:23)
[2021-08-08] MEDS: HEPARIN 5,000 UNIT/1 ML VIAL SUBCUT SCH ×2 (01:02→13:05)
[2021-08-08 02:49] LABS: Basophils % 0.6 % (0.0-0.8); Eosinophils # 0.3 10*3/uL (0.0-0.87); Eosinophils % 4.8 % (0.00-10.9); Hematocrit 35.8 VOL% (35.7-47.0); Hemoglobin 10.9 GM/DL (12.0-16.0); Immature Granulocytes % 0.7 %; Immature Granulocytes Absolute 0.05 #; Lymphocytes # 0.9 10*3/uL (1.4-4.0); Lymphocytes % 12.8 % (21.3-54.2); Mean Corpuscular HGB Conc 30.4 GM/DL (32-36); Mean Corpuscular Volume 98.4 FL (87-102); Mean Platelet Volume 11.7 FL (9.6-12.0); Monocytes # 0.6 10*3/uL (0.11-0.8); Monocytes % 8.1 % (1.7-12.7); Platelet Count 139 T/CUMM (130-400); Red Blood Count 3.64 MC/CUMM (3.8-5.5); Red Cell Distribution Width 15.2 % (9.3-17.3); White Blood Count 6.9 T/CUMM (4-12)
[2021-08-08 04:07] LABS: Potassium 3.9 MMOL/L (3.5-5.1)
[2021-08-08 04:08] LABS: Calcium 9.2 MG/DL (8.5-10.1)
[2021-08-08 04:10] LABS: Osmolality,Calculated 299.1 MOS/KG (273-304)
[2021-08-08] MEDS ORDERED: FUROSEMIDE 40 MG/4 ML VIAL IV SCH (09:00)
[2021-08-08] MEDS: POLYETHYLENE GLYCOL POWDER 17 GM PACK PO SCH ×2 (10:08→20:00)
[2021-08-08] MEDS: amLODIPine 10 MG TABLET PO SCH (10:09)
[2021-08-08] MEDS: OXcarbazepine 300 MG TABLET PO SCH ×2 (10:09→20:00)
[2021-08-08] MEDS: INSULIN REGULAR 100 UNIT/ML SUBCUT SCH ×4 (10:09→20:00)
[2021-08-08] MEDS: GABAPENTIN 300 MG CAPSULE PO SCH ×3 (10:09→20:00)
[2021-08-08] MEDS: EZETIMIBE 10 MG TABLET PO SCH (10:12)
[2021-08-08] MEDS: METOPROLOL TARTRATE 100 MG TABLET PO SCH ×2 (10:12→20:00)
[2021-08-08] MEDS: busPIRone 15 MG TABLET PO SCH ×2 (10:12→20:00)
[2021-08-08] MEDS: DOCUSATE SODIUM 100 MG CAPSULE PO SCH ×2 (10:12→20:00)
[2021-08-08] MEDS: POTASSIUM CHLORIDE 20 MEQ TABLET PO SCH (10:13)
[2021-08-08] MEDS: PANTOPRAZOLE 40 MG TABLET PO SCH (10:13)
[2021-08-08] MEDS: PIPERACILLIN/TAZOBACTAM 3,375 MG in SODIUM CHLORIDE 0.9% 100 ML IV SCH (10:13)
[2021-08-08] MEDS: FOLIC ACID 1 MG TABLET PO SCH (10:13)
[2021-08-08] MEDS: ACETAMINOPHEN 325 MG TABLET PO PRN (12:59)
[2021-08-08] MEDS: WARFARIN 3 MG TABLET PO SCH (18:31)
[2021-08-08] MEDS: CETIRIZINE 10 MG TABLET PO SCH (20:00)
[2021-08-08] MEDS: clonazePAM 0.5 MG TABLET PO SCH (20:00)
[2021-08-08] MEDS: INSULIN GLARGINE 100 UNIT/ML SUBCUT SCH (20:00)
[2021-08-09] MEDS: PIPERACILLIN/TAZOBACTAM 3,375 MG in SODIUM CHLORIDE 0.9% 100 ML IV SCH ×3 (00:05→20:20)
[2021-08-09] MEDS: ALBUTEROL/IPRATROPIUM 3 ML NEB RESP TX SCH ×5 (00:30→19:43)
[2021-08-09] MEDS: HEPARIN 5,000 UNIT/1 ML VIAL SUBCUT SCH ×3 (00:57→22:35)
[2021-08-09 06:23] LABS: Basophils % 0.3 % (0.0-0.8); Eosinophils # 0.2 10*3/uL (0.0-0.87); Eosinophils % 2.2 % (0.00-10.9); Hematocrit 34.9 VOL% (35.7-47.0); Hemoglobin 10.8 GM/DL (12.0-16.0); Immature Granulocytes % 0.5 %; Immature Granulocytes Absolute 0.05 #; Lymphocytes # 0.8 10*3/uL (1.4-4.0); Lymphocytes % 8.2 % (21.3-54.2); Mean Corpuscular HGB Conc 30.9 GM/DL (32-36); Mean Corpuscular Volume 95.1 FL (87-102); Mean Platelet Volume 10.7 FL (9.6-12.0); Monocytes # 0.8 10*3/uL (0.11-0.8); Monocytes % 7.7 % (1.7-12.7); Neutrophils % 81.1 % (38.7-73.9); Platelet Count 151 T/CUMM (130-400); Red Blood Count 3.67 MC/CUMM (3.8-5.5); Red Cell Distribution Width 14.6 % (9.3-17.3); White Blood Count 10.3 T/CUMM (4-12)
[2021-08-09 06:43] LABS: Albumin 2.7 G/DL (3.4-5.0); Bilirubin,Total 0.7 MG/DL (0.20-1.00); Calcium 8.8 MG/DL (8.5-10.1); Osmolality,Calculated 295.3 MOS/KG (273-304); Potassium 3.6 MMOL/L (3.5-5.1); Total Protein 6.6 G/DL (6.4-8.2)
[2021-08-09] MEDS ORDERED: FUROSEMIDE 40 MG TABLET PO SCH (08:00)
[2021-08-09] MEDS: amLODIPine 10 MG TABLET PO SCH (09:27)
[2021-08-09] MEDS: POTASSIUM CHLORIDE 20 MEQ TABLET PO SCH (09:27)
[2021-08-09] MEDS: DOCUSATE SODIUM 100 MG CAPSULE PO SCH ×2 (09:27→20:20)
[2021-08-09] MEDS: METOPROLOL TARTRATE 100 MG TABLET PO SCH ×2 (09:27→20:20)
[2021-08-09] MEDS: OXcarbazepine 300 MG TABLET PO SCH ×2 (09:28→20:20)
[2021-08-09] MEDS: busPIRone 15 MG TABLET PO SCH ×2 (09:28→20:20)
[2021-08-09] MEDS: FOLIC ACID 1 MG TABLET PO SCH (09:28)
[2021-08-09] MEDS: PANTOPRAZOLE 40 MG TABLET PO SCH (09:28)
[2021-08-09] MEDS: POLYETHYLENE GLYCOL POWDER 17 GM PACK PO SCH ×2 (09:29→20:20)
[2021-08-09] MEDS: EZETIMIBE 10 MG TABLET PO SCH (09:29)
[2021-08-09] MEDS: INSULIN REGULAR 100 UNIT/ML SUBCUT SCH ×4 (09:29→22:35)
[2021-08-09] MEDS: GABAPENTIN 300 MG CAPSULE PO SCH ×3 (09:29→20:20)
[2021-08-09] MEDS ORDERED: VANCOMYCIN INJ 1,250 MG in SODIUM CHLORIDE 0.9% 250 ML IV SCH (12:30)
[2021-08-09] MEDS ORDERED: VANCOMYCIN INJ 1,500 MG in SODIUM CHLORIDE 0.9% 500 ML IV PRN (12:56)
[2021-08-09] MEDS ORDERED: VANCOMYCIN INJ 1,500 MG in SODIUM CHLORIDE 0.9% 500 ML IV ONE (13:00)
[2021-08-09] MEDS: WARFARIN 3 MG TABLET PO SCH (18:03)
[2021-08-09] MEDS: clonazePAM 0.5 MG TABLET PO SCH (20:20)
[2021-08-09] MEDS: CETIRIZINE 10 MG TABLET PO SCH (20:20)
[2021-08-09] MEDS: INSULIN GLARGINE 100 UNIT/ML SUBCUT SCH (22:35)
[2021-08-10] MEDS: ALBUTEROL/IPRATROPIUM 3 ML NEB RESP TX SCH ×4 (01:14→19:48)
[2021-08-10 05:35] LABS: Basophils % 0.3 % (0.0-0.8); Eosinophils # 0.1 10*3/uL (0.0-0.87); Eosinophils % 1.5 % (0.00-10.9); Hemoglobin 9.6 GM/DL (12.0-16.0); Immature Granulocytes % 0.5 %; Immature Granulocytes Absolute 0.05 #; Lymphocytes % 10.6 % (21.3-54.2); Mean Corpuscular Volume 96.6 FL (87-102); Mean Platelet Volume 10.8 FL (9.6-12.0); Monocytes # 0.8 10*3/uL (0.11-0.8); Monocytes % 8.8 % (1.7-12.7); Neutrophils % 78.3 % (38.7-73.9); Platelet Count 133 T/CUMM (130-400); Red Blood Count 3.21 MC/CUMM (3.8-5.5); Red Cell Distribution Width 14.7 % (9.3-17.3); White Blood Count 9.5 T/CUMM (4-12)
[2021-08-10 05:44] LABS: INR 2.6; PT Patient Result 26.7 SECS (10.5-12.0)
[2021-08-10 06:06] LABS: Alanine Aminotransferase < 6 U/L (13-56); Albumin 2.3 G/DL (3.4-5.0); Alkaline Phosphatase 92 U/L (45-117); Aspartate Amino Transferase 13 U/L (0-37); Blood Urea Nitrogen 30 MG/DL (7-18); Calcium 8.8 MG/DL (8.5-10.1); Carbon Dioxide 30 MMOL/L (21-32); Chloride 106 MMOL/L (98-107); Glucose 139 MG/DL (74-106); Potassium 3.4 MMOL/L (3.5-5.1); Sodium 143 MMOL/L (136-145)
[2021-08-10] MEDS ORDERED: POTASSIUM CHLORIDE 20 MEQ TABLET PO ONE (07:20)
[2021-08-10] MEDS: INSULIN REGULAR 100 UNIT/ML SUBCUT SCH ×4 (09:49→22:19)
[2021-08-10] MEDS: POLYETHYLENE GLYCOL POWDER 17 GM PACK PO SCH ×2 (10:08→22:20)
[2021-08-10] MEDS: DOCUSATE SODIUM 100 MG CAPSULE PO SCH ×2 (10:09→22:18)
[2021-08-10] MEDS: POTASSIUM CHLORIDE 20 MEQ TABLET PO SCH (10:09)
[2021-08-10] MEDS: PANTOPRAZOLE 40 MG TABLET PO SCH (10:09)
[2021-08-10] MEDS: EZETIMIBE 10 MG TABLET PO SCH (10:09)
[2021-08-10] MEDS: GABAPENTIN 300 MG CAPSULE PO SCH ×3 (10:09→22:20)
[2021-08-10] MEDS: OXcarbazepine 300 MG TABLET PO SCH ×2 (10:10→22:19)
[2021-08-10] MEDS: busPIRone 15 MG TABLET PO SCH ×2 (10:11→22:18)
[2021-08-10] MEDS: FOLIC ACID 1 MG TABLET PO SCH (10:11)
[2021-08-10] MEDS: PIPERACILLIN/TAZOBACTAM 3,375 MG in SODIUM CHLORIDE 0.9% 100 ML IV SCH ×2 (10:11→22:38)
[2021-08-10] MEDS: amLODIPine 10 MG TABLET PO SCH (10:11)
[2021-08-10] MEDS: METOPROLOL TARTRATE 100 MG TABLET PO SCH ×2 (10:25→22:18)
[2021-08-10] MEDS: HEPARIN 5,000 UNIT/1 ML VIAL SUBCUT SCH ×2 (12:48→22:39)
[2021-08-10] MEDS: QUEtiapine 25 MG TABLET PO SCH ×2 (12:48→22:18)
[2021-08-10] MEDS: WARFARIN 3 MG TABLET PO SCH (17:31)
[2021-08-10] MEDS: INSULIN GLARGINE 100 UNIT/ML SUBCUT SCH (22:20)
[2021-08-10] MEDS: VANCOMYCIN INJ 1,500 MG in SODIUM CHLORIDE 0.9% 500 ML IV SCH (22:21)
[2021-08-10] MEDS: CETIRIZINE 10 MG TABLET PO SCH (22:39)
[2021-08-11 06:09] LABS: Basophils % 0.4 % (0.0-0.8); Eosinophils # 0.2 10*3/uL (0.0-0.87); Eosinophils % 2.2 % (0.00-10.9); Hematocrit 31.5 VOL% (35.7-47.0); Hemoglobin 9.8 GM/DL (12.0-16.0); Immature Granulocytes % 0.3 %; Immature Granulocytes Absolute 0.03 #; Lymphocytes # 1.1 10*3/uL (1.4-4.0); Lymphocytes % 11.4 % (21.3-54.2); Mean Corpuscular HGB Conc 31.1 GM/DL (32-36); Mean Corpuscular Volume 97.2 FL (87-102); Mean Platelet Volume 10.5 FL (9.6-12.0); Monocytes # 0.8 10*3/uL (0.11-0.8); Monocytes % 8.4 % (1.7-12.7); Neutrophils % 77.3 % (38.7-73.9); Platelet Count 134 T/CUMM (130-400); Red Blood Count 3.24 MC/CUMM (3.8-5.5); Red Cell Distribution Width 14.8 % (9.3-17.3); White Blood Count 9.6 T/CUMM (4-12)
[2021-08-11 06:21] LABS: INR 2.4; PT Patient Result 24.9 SECS (10.5-12.0)
[2021-08-11 06:27] LABS: Alanine Aminotransferase < 9 U/L (13-56); Albumin 2.4 G/DL (3.4-5.0); Alkaline Phosphatase 91 U/L (45-117); Aspartate Amino Transferase 13 U/L (0-37); Blood Urea Nitrogen 35 MG/DL (7-18); Carbon Dioxide 28 MMOL/L (21-32); Chloride 107 MMOL/L (98-107); Glucose 167 MG/DL (74-106); Osmolality,Calculated 290.4 MOS/KG (273-304); Potassium 3.9 MMOL/L (3.5-5.1); Sodium 140 MMOL/L (136-145); Total Protein 6.4 G/DL (6.4-8.2)
[2021-08-11] MEDS: ALBUTEROL/IPRATROPIUM 3 ML NEB RESP TX SCH ×3 (07:45→19:10)
[2021-08-11] MEDS: INSULIN REGULAR 100 UNIT/ML SUBCUT SCH ×4 (11:18→22:09)
[2021-08-11] MEDS: amLODIPine 10 MG TABLET PO SCH (11:19)
[2021-08-11] MEDS: GABAPENTIN 300 MG CAPSULE PO SCH (11:19)
[2021-08-11] MEDS: EZETIMIBE 10 MG TABLET PO SCH (11:19)
[2021-08-11] MEDS: FOLIC ACID 1 MG TABLET PO SCH (11:19)
[2021-08-11] MEDS: PANTOPRAZOLE 40 MG TABLET PO SCH (11:19)
[2021-08-11] MEDS: OXcarbazepine 300 MG TABLET PO SCH ×2 (11:19→22:11)
[2021-08-11] MEDS: DOCUSATE SODIUM 100 MG CAPSULE PO SCH ×2 (11:19→22:12)
[2021-08-11] MEDS: QUEtiapine 25 MG TABLET PO SCH ×2 (11:19→22:11)
[2021-08-11] MEDS: POTASSIUM CHLORIDE 20 MEQ TABLET PO SCH (11:19)
[2021-08-11] MEDS: busPIRone 15 MG TABLET PO SCH ×2 (11:19→22:22)
[2021-08-11] MEDS: PIPERACILLIN/TAZOBACTAM 3,375 MG in SODIUM CHLORIDE 0.9% 100 ML IV SCH ×2 (11:20→20:00)
[2021-08-11] MEDS: METOPROLOL TARTRATE 100 MG TABLET PO SCH ×2 (11:20→22:11)
[2021-08-11] MEDS: POLYETHYLENE GLYCOL POWDER 17 GM PACK PO SCH ×2 (11:20→22:09)
[2021-08-11] MEDS ORDERED: FUROSEMIDE 40 MG/4 ML VIAL IV ONE (12:30)
[2021-08-11] MEDS: MEGESTROL 40 MG TABLET PO SCH ×2 (13:15→22:11)
[2021-08-11] MEDS: HEPARIN 5,000 UNIT/1 ML VIAL SUBCUT SCH ×2 (13:20→22:10)
[2021-08-11] MEDS: WARFARIN 3 MG TABLET PO SCH (17:21)
[2021-08-11] MEDS: ACETAMINOPHEN 325 MG TABLET PO PRN (17:22)
[2021-08-11] MEDS: INSULIN GLARGINE 100 UNIT/ML SUBCUT SCH (22:09)
[2021-08-11] MEDS: CETIRIZINE 10 MG TABLET PO SCH (22:11)
[2021-08-11] MEDS: VANCOMYCIN INJ 1,500 MG in SODIUM CHLORIDE 0.9% 500 ML IV SCH (22:14)
[2021-08-12] MEDS: ALBUTEROL/IPRATROPIUM 3 ML NEB RESP TX SCH ×4 (00:30→20:02)
[2021-08-12 05:57] LABS: INR 2.4; PT Patient Result 24.5 SECS (10.5-12.0)
[2021-08-12 06:47] LABS: Basophils # 0.1 10*3/uL (0.0-0.2); Basophils % 0.7 % (0.0-0.8); Eosinophils # 0.3 10*3/uL (0.0-0.87); Eosinophils % 4.4 % (0.00-10.9); Hematocrit 31.3 VOL% (35.7-47.0); Hemoglobin 9.5 GM/DL (12.0-16.0); Immature Granulocytes % 0.6 %; Immature Granulocytes Absolute 0.04 #; Lymphocytes # 0.7 10*3/uL (1.4-4.0); Lymphocytes % 10.3 % (21.3-54.2); Mean Corpuscular HGB Conc 30.4 GM/DL (32-36); Mean Corpuscular Volume 97.8 FL (87-102); Mean Platelet Volume 10.9 FL (9.6-12.0); Monocytes # 0.6 10*3/uL (0.11-0.8); Monocytes % 8.7 % (1.7-12.7); Neutrophils % 75.3 % (38.7-73.9); Platelet Count 122 T/CUMM (130-400); Red Cell Distribution Width 14.8 % (9.3-17.3); White Blood Count 6.9 T/CUMM (4-12)
[2021-08-12 06:59] LABS: Albumin 2.2 G/DL (3.4-5.0); Bilirubin,Total 0.6 MG/DL (0.20-1.00); Calcium 8.3 MG/DL (8.5-10.1); Osmolality,Calculated 282.7 MOS/KG (273-304); Potassium 4.3 MMOL/L (3.5-5.1); Total Protein 5.6 G/DL (6.4-8.2)
[2021-08-12] MEDS: INSULIN REGULAR 100 UNIT/ML SUBCUT SCH ×3 (09:10→17:24)
[2021-08-12] MEDS: MEGESTROL 40 MG TABLET PO SCH ×2 (10:17→22:43)
[2021-08-12] MEDS: OXcarbazepine 300 MG TABLET PO SCH ×2 (10:17→22:44)
[2021-08-12] MEDS: busPIRone 15 MG TABLET PO SCH ×2 (10:17→22:43)
[2021-08-12] MEDS: EZETIMIBE 10 MG TABLET PO SCH (10:17)
[2021-08-12] MEDS: FOLIC ACID 1 MG TABLET PO SCH (10:17)
[2021-08-12] MEDS: amLODIPine 10 MG TABLET PO SCH (10:17)
[2021-08-12] MEDS: METOPROLOL TARTRATE 100 MG TABLET PO SCH ×2 (10:17→22:43)
[2021-08-12] MEDS: PIPERACILLIN/TAZOBACTAM 3,375 MG in SODIUM CHLORIDE 0.9% 100 ML IV SCH ×2 (10:17→22:44)
[2021-08-12] MEDS: POTASSIUM CHLORIDE 20 MEQ TABLET PO SCH (10:17)
[2021-08-12] MEDS: DOCUSATE SODIUM 100 MG CAPSULE PO SCH ×2 (10:17→22:43)
[2021-08-12] MEDS: PANTOPRAZOLE 40 MG TABLET PO SCH (10:17)
[2021-08-12] MEDS: POLYETHYLENE GLYCOL POWDER 17 GM PACK PO SCH ×2 (10:19→22:43)
[2021-08-12] MEDS: HEPARIN 5,000 UNIT/1 ML VIAL SUBCUT SCH (12:41)
[2021-08-12] MEDS: WARFARIN 3 MG TABLET PO SCH (17:24)
[2021-08-12] MEDS: CETIRIZINE 10 MG TABLET PO SCH (22:43)
[2021-08-12] MEDS: QUEtiapine 25 MG TABLET PO SCH (22:44)
[2021-08-12] MEDS: INSULIN GLARGINE 100 UNIT/ML SUBCUT SCH (22:59)
[2021-08-13] MEDS: ALBUTEROL/IPRATROPIUM 3 ML NEB RESP TX SCH ×3 (00:57→13:25)
[2021-08-13] MEDS: INSULIN REGULAR 100 UNIT/ML SUBCUT SCH ×3 (01:33→13:20)
[2021-08-13] MEDS: VANCOMYCIN INJ 1,500 MG in SODIUM CHLORIDE 0.9% 500 ML IV SCH (01:34)
[2021-08-13] MEDS: HEPARIN 5,000 UNIT/1 ML VIAL SUBCUT SCH (01:34)
[2021-08-13 05:37] LABS: Basophils % 0.6 % (0.0-0.8); Eosinophils # 0.3 10*3/uL (0.0-0.87); Eosinophils % 4.7 % (0.00-10.9); Hematocrit 32.5 VOL% (35.7-47.0); Hemoglobin 9.9 GM/DL (12.0-16.0); Immature Granulocytes % 0.3 %; Immature Granulocytes Absolute 0.02 #; Lymphocytes # 0.9 10*3/uL (1.4-4.0); Lymphocytes % 13.5 % (21.3-54.2); Mean Corpuscular HGB Conc 30.5 GM/DL (32-36); Mean Corpuscular Volume 96.7 FL (87-102); Mean Platelet Volume 10.7 FL (9.6-12.0); Monocytes # 0.5 10*3/uL (0.11-0.8); Monocytes % 7.8 % (1.7-12.7); Neutrophils % 73.1 % (38.7-73.9); Platelet Count 149 T/CUMM (130-400); Red Blood Count 3.36 MC/CUMM (3.8-5.5); Red Cell Distribution Width 14.6 % (9.3-17.3); White Blood Count 6.9 T/CUMM (4-12)
[2021-08-13 05:52] LABS: INR 2.7; PT Patient Result 27.5 SECS (10.5-12.0)
[2021-08-13 05:55] LABS: Albumin 2.3 G/DL (3.4-5.0); Bilirubin,Total 0.7 MG/DL (0.20-1.00); Calcium 8.9 MG/DL (8.5-10.1); Osmolality,Calculated 287.5 MOS/KG (273-304); Potassium 4.2 MMOL/L (3.5-5.1); Total Protein 6.6 G/DL (6.4-8.2)
[2021-08-13] MEDS: POLYETHYLENE GLYCOL POWDER 17 GM PACK PO SCH (10:22)
[2021-08-13] MEDS: OXcarbazepine 300 MG TABLET PO SCH (10:22)
[2021-08-13] MEDS: busPIRone 15 MG TABLET PO SCH (10:22)
[2021-08-13] MEDS: METOPROLOL TARTRATE 100 MG TABLET PO SCH (10:22)
[2021-08-13] MEDS: DOCUSATE SODIUM 100 MG CAPSULE PO SCH (10:22)
[2021-08-13] MEDS: POTASSIUM CHLORIDE 20 MEQ TABLET PO SCH (10:22)
[2021-08-13] MEDS: EZETIMIBE 10 MG TABLET PO SCH (10:22)
[2021-08-13] MEDS: FOLIC ACID 1 MG TABLET PO SCH (10:23)
[2021-08-13] MEDS: PIPERACILLIN/TAZOBACTAM 3,375 MG in SODIUM CHLORIDE 0.9% 100 ML IV SCH (10:23)
[2021-08-13] MEDS: PANTOPRAZOLE 40 MG TABLET PO SCH (10:23)
[2021-08-13] MEDS: amLODIPine 10 MG TABLET PO SCH (10:23)
[2021-08-13] MEDS: MEGESTROL 40 MG TABLET PO SCH (10:23)
[2021-08-13 12:27] VITALS: BP 129/67
== END 2021-08-13 15:37 | DRG 194 ==
LOC: N.ED 18:58 → SUATTDRO 22:52 → N.EDINP 22:52 → N.TELES 08-08 04:20
PROVIDERS: ADMIT Family Medicine; ATTEND Emergency Medicine